=== PATIENT | male | born 1940 | race Caucasian/White ===

== ENCOUNTER → 2017-06-23 | Day surgery (SDC) | payer MEDICARE, MEDICAID ==
[~2017-06-23] MED LIST: ASPI81 PO; ATEN50TA PO; BENZ100 PO; BUPIVACAINE/EPINEPHRINE 0.25% 50 ML VIAL INFIL ONE; CALC250T PO; FENO160T PO; FISH OIL 1400 MG; ISOSULFAN BLUE 50 MG/5 ML VIAL SQ ONE; LACTATED RINGER'S 1000 ML INJ 1,000 ML ONE; LISI40TA PO; LORA1TAB12 PO; LUTE6CAP7 PO; MIDAZOLAM HCL 2 MG/2 ML VIAL ONE; MOME17I EACH NARE; NEVI200 PO; NEXI40CA PO; ONDA1TAB16; ONDANSETRON HCL 4 MG/2 ML VIAL IV PUSH ONE; PRAZ1CAP PO; PROPOFOL 200 MG/20 ML AMP IV ONE; SODIUM CHLORIDE 0.9% SOLN 100 ML (PAB) BAG IV ONE; TAB-TAB PO; VALT500T PO; VANCOMYCIN HCL 1000 MG VIAL ONE; VITA500T10 PO; [UNRECOGNIZED DRUG - CODE]; [UNRECOGNIZED DRUG - CODE]; [UNRECOGNIZED DRUG - OTHER]; [UNRECOGNIZED DRUG - SUPPLY]
--- NOTE | 2017-06-23 13:07 | TN ---
cc: MELQUIADES SEAMAN DATE OF SURGERY: 06/23/2017 PREOPERATIVE DIAGNOSIS Left mid-back melanoma. POSTOPERATIVE DIAGNOSIS Left mid-back melanoma. PROCEDURE 1. Wide excision of the left mid-back melanoma with intermediate closure of wound 3.5 cm x 8 cm. 2. [place] lymph node biopsy left axilla. ATTENDING SURGEON Mariela. CASE FOLDER Staff. ANESTHESIA General. ESTIMATED BLOOD LOSS Less than 10 cc. COMPLICATIONS None. FINDINGS One hot lymph node left axilla correlating to lymphoscintigraphy. INDICATION FOR PROCEDURE The patient is a 77-year-old male who developed a large melanoma on his left mid-back. The melanoma was biopsied partially with the majority of the melanoma intact. This returned a thin melanoma. Due to the large size of the melanoma this was likely a deeper melanoma and the patient was recommended to either undergo an excisional biopsy or to proceed with sentinel lymph node biopsy during his excision. He desired to undergo sentinel lymph node biopsy at the time of his excision. The risks, benefits and alternatives were discussed with the patient prior to the procedure. The patient agreed to undergo the procedure. DETAILS OF PROCEDURE The patient was taken to the operating room, placed in a supine position and placed under general anesthesia. The patient was transferred to the right lateral decubitus position. The back was prepped and draped in a sterile fashion. A timeout was performed. The area was marked with at least 1 cm or more 360 degrees around the patient's left mid-back melanoma. We excised this with a 15 blade scalpel in an elliptical fashion to facilitate closure. Local anesthetic was used prior to incision. We used Bovie electrocautery to dissect through the subcutaneous tissue and take the melanoma off of the deep fascia of the back. We then undermined approximately a centimeter around the wound and closed this with several deep dermal 0 Vicryl sutures. We closed the skin with 4-0 Monocryl followed by Steri-Strips. We had excellent hemostasis. We checked the wound closure with minimal tension. We placed a bandage over the patient's Steri-Strips and back wound and transferred him back to the supine position. We then turned our attention towards the axilla. We prepped and draped the left axilla where lymphoscintigraphy stated his sentinel node was located. We anesthetized a small area under the skin area of the left axilla and excised this with a 15 blade scalpel. We dissected through the subcutaneous tissue and opened the clavipectoral fascia with Bovie electrocautery. We placed a self-retractor and identified the node easily which was a normal-appearing node in level II. We excised this with Bovie electrocautery completely and passed this off as hot and nonpalpable. The background was minimum. We had excellent hemostasis. We turned our attention towards closure. We closed the clavipectoral fascia with running 3-0 Vicryl suture. We closed the skin with 4-0 Monocryl and Dermabond. The patient was discontinued from anesthesia and taken to PACU in stable condition. The patient tolerated the procedure well. No apparent complications. All counts were correct. I was present and scrubbed for the entire procedure. MD KOBE Croft/MARISOL /12:25 PM /12:45 PM
== END | disposition home or self-care (01) ==
LOC: ESDC 06:42
PROVIDERS: ATTEND Surgery
DX: C43.59 Malignant melanoma of other part of trunk (principal); E11.9 Type 2 diabetes mellitus without complications
CPT/HCPCS: 00300; 01610; 11606; 12032; 38525; 82948; 88305; 88307; 88341; 88342; J2250; J2405; J3010; J3370; J7120; Q9968

== ENCOUNTER 2018-03-18 07:39 | Day surgery (SDC) | payer MEDICARE, MEDICAID ==
[~2018-03-18 07:39] MED LIST changes: +AMLO5TAB2 PO; +BENCH; -BUPIVACAINE/EPINEPHRINE 0.25% 50 ML VIAL INFIL ONE; -ISOSULFAN BLUE 50 MG/5 ML VIAL SQ ONE; -LACTATED RINGER'S 1000 ML INJ 1,000 ML ONE; -MIDAZOLAM HCL 2 MG/2 ML VIAL ONE; -ONDA1TAB16; -ONDANSETRON HCL 4 MG/2 ML VIAL IV PUSH ONE; -PRAZ1CAP PO; -PROPOFOL 200 MG/20 ML AMP IV ONE; -SODIUM CHLORIDE 0.9% SOLN 100 ML (PAB) BAG IV ONE; -VANCOMYCIN HCL 1000 MG VIAL ONE; +ZOFR4TAB PO
[2018-03-18] MEDS ORDERED: CHLORHEXIDINE GLUCONATE 2 % 1 PACK (2 CLOTHS) TOPICAL SCH (09:00)
[2018-03-18] MEDS ORDERED: MUPIROCIN 2% OINT 1 APPLIC/GM SYR NASAL SCH (09:00)
[2018-03-18] MEDS ORDERED: POVIDONE IODINE 5% (ANTISEPSIS KIT) 4 APPLICATIONS EACH NARE SCH (09:00)
[2018-03-18] MEDS ORDERED: Hold AM Insulin & AM Hypoglycemic medications in diabetic patients PRN (09:00)
[2018-03-18] MEDS ORDERED: VANCOMYCIN 1000 MG/NS 250 ML IV SCH ×2 (09:00)
[2018-03-18] MEDS ORDERED: NS 1000 ML IV SCH (09:00)
[2018-03-18] MEDS ORDERED: NO Heparin, Lovenox, Coumadin at least 12 hours prior to procedure. PRN (09:00)
[2018-03-18] MEDS ORDERED: LYRI75CA PO (09:19)
[2018-03-18] MEDS ORDERED: LOMO2.5T PO (09:19)
[2018-03-18] MEDS ORDERED: NEXI40CA PO (09:19)
[2018-03-18] MEDS ORDERED: HUMALOG SQ (09:19)
[2018-03-18] MEDS ORDERED: RALT100C CHEW (09:19)
[2018-03-18] MEDS ORDERED: DULO1CAP2 PO (09:19)
[2018-03-18] MEDS ORDERED: CALCTAB19 PO (09:19)
[2018-03-18] MEDS ORDERED: LANTUS2P SQ (09:19)
[2018-03-18] MEDS ORDERED: METO50TA PO (09:19)
[2018-03-18] MEDS ORDERED: CYMB30CA PO (09:19)
[2018-03-18] MEDS ORDERED: OLOP.1%O EACH EYE (09:19)
[2018-03-18] MEDS ORDERED: ECASA81 PO (09:19)
[2018-03-18] MEDS ORDERED: MULTTAB67 PO (09:19)
[2018-03-18] MEDS ORDERED: NEVI200T PO (09:19)
--- NOTE | 2018-03-18 10:45 | MA ---
cc: Fredrick Hurt MD DATE: 03/18/2018 PROCEDURE: Loop recorder insertion. INDICATIONS: Atrial fibrillation detection. DESCRIPTION OF PROCEDURE: The patient was brought to the DOC Unit in the postabsorptive state. After informed consent was obtained, a [employer] LINQ loop recorder was inserted subcutaneously in the left chest. The patient tolerated the procedure well without any apparent complications. Tachybrady pause and atrial fibrillation detection was unable. The initial R-wave was 0.46 millivolts. The serial number was [id number]. Fredrick Hurt MD LAURA/AG , 10:14 AM , 10:44 AM
== END 2018-03-18 12:15 | disposition home or self-care (01) ==
LOC: HDOC 07:39 → HDIC 07:41 → HDOC 12:15
PROVIDERS: ATTEND Nuclear Medicine Nuclear Cardiology
DX: I48.91 Unspecified atrial fibrillation (principal); I10 Essential (primary) hypertension; E78.5 Hyperlipidemia, unspecified; E11.9 Type 2 diabetes mellitus without complications; Z79.4 Long term (current) use of insulin; Z79.82 Long term (current) use of aspirin
CPT/HCPCS: 33282; C1764; J3370; J7030; J7050

== ENCOUNTER 2018-09-06 10:33 | Inpatient (IN) ==
[2018-09-06] MEDS ORDERED: Sod Chloride 0.9% Inj 1,000 ML IV.CONT SCH (10:45)
--- NOTE | 2018-09-06 10:45 | ED ---
HPI General Chief Complaint: Stroke Alert Stated Complaint: medical Time Seen by Provider: 09/06/18 10:43 Source: patient and family Mode of arrival: ambulatory Limitations: no limitations History of Present Illness HPI Narrative: Patient is a 78-year-old male with history of atrial fibrillation on Eliquis, presents to the emergency room for evaluation. Patient reports that he went to bed last night and woke up this morning slurring his speech with left-sided facial droop. Patient's son called patient today and reports that he sounded not like his normal self. When son arrived to the house, he noticed that he had a left-sided facial droop as well as slurring of speech. Patient does admit that a few days ago - he fell and hit his head on the floor - he was not seen by a physician after he fell. Related Data Home Medications Medication Instructions Recorded Confirmed apixaban [Eliquis] 5 mg PO BID 09/06/18 09/06/18 diltiazem HCl 360 mg PO DAILY 09/06/18 09/06/18 duloxetine [Cymbalta] 30 mg PO BID 09/06/18 09/06/18 esomeprazole magnesium [Nexium] 40 mg PO DAILY 09/06/18 09/06/18 fenofibrate 160 mg PO DAILY 09/06/18 09/06/18 insulin glargine [Lantus U-100 35 unit SUBCUT BID 09/06/18 09/06/18 Insulin] insulin lispro [Humalog U-100 15 unit SUBCUT TIDAC 09/06/18 09/06/18 Insulin] lisinopril 5 mg PO DAILY 09/06/18 09/06/18 lorazepam [Ativan] 1 mg PO TID 09/06/18 09/06/18 metoprolol tartrate 75 mg PO BID 09/06/18 09/06/18 nevirapine 200 mg PO Q12H 09/06/18 09/06/18 ondansetron HCl [Zofran] 4 mg PO Q6-8H PRN 09/06/18 09/06/18 pregabalin [Lyrica] 75 mg PO TID 09/06/18 09/06/18 raltegravir [Isentress] 400 mg PO BID 09/06/18 09/06/18 valacyclovir 500 mg PO DAILY 09/06/18 09/06/18 Allergies Allergy/AdvReac Type Severity Reaction Status Date / Time ephedrine Allergy Mild ANXIETY Verified 11/22/17 09:13 penicillin G Allergy Mild Rash Verified 11/22/17 09:13 FLONASE AdvReac Mild REDNESS Uncoded 01/04/17 10:59 AND CONGESTION Review of Systems ROS: all other systems reviewed are negative PMFSH History History Provided By: Patient and Family Member Medical History Medical History Atrial fibrillation and flutter (Acute) Diabetes (Acute) HIV (human immunodeficiency virus infection) (Acute) Hypertension (Acute) Kidney disease (Acute) Polycythemia vera (Acute) Surgical History Surgical History History of appendectomy (Acute) Social History Social History Substance History: No History of Abuse Smoking Status: Former smoker Tobacco Type: Cigarettes How Often Do You Have a Drink Containing Alcohol: Never Recent Travel in [facility] within the Last 8 Weeks: No Recent Out of Country Travel within the Last 8 Weeks: No Exam Narrative Exam Narrative: GENERAL: moderate distress SKIN: Focused skin assessment warm/dry. HEAD: Atraumatic. Normocephalic. EYES: Pupils equal and round. No scleral icterus. No injection or drainage. ENT: No nasal bleeding or discharge. Mucous membranes pink and moist. NECK: Trachea midline. No JVD. CARDIOVASCULAR: Regular rate and rhythm. No murmur appreciated. RESPIRATORY: No accessory muscle use. Clear to auscultation. Breath sounds equal bilaterally. GASTROINTESTINAL: Abdomen soft, non-tender, nondistended. Hepatic and splenic margins not palpable. MUSCULOSKELETAL: No obvious deformities. No clubbing. No cyanosis. No edema. NEUROLOGICAL: Awake and alert. Motor grossly within normal limits. Patient with slurring of speech with left sided facial droop - NIH scale 2 PSYCHIATRIC: Appropriate mood and affect; insight and judgment normal. Course Initial Documented Vital Signs Temperature 99.5 F 09/06/18 10:35 Pulse Rate 58 L 09/06/18 10:35 Respiratory Rate 18 09/06/18 10:35 Blood Pressure 196/94 H 09/06/18 10:35 Pulse Oximetry 94 L 09/06/18 10:35 Last Documented Vital Signs Temperature 99.5 F 09/06/18 10:35 Pulse Rate 54 L 09/06/18 12:51 Respiratory Rate 18 09/06/18 12:51 Blood Pressure 174/82 H 09/06/18 12:51 Pulse Oximetry 94 L 09/06/18 12:51 Critical Care Time Critical Care Time: Yes Total Critical Care Time: 30 Attestation: Aggregate critical care time was 30 minutes. Time to perform other separately billable procedures was not included in the critical care time. My time did not include minutes spent treating any other patients simultaneously or on activities that did not directly contribute to the patient's treatment. The services I provided to this patient were to treat and/or prevent clinically significant deterioration that could result in: , decompensation, deterioration I provided critical care services requiring my management, as noted below: Chart data review, documentation time, medication orders and management, vital sign assessments/reviewing monitor data, ordering and reviewing lab tests, ordering and interpreting/reviewing x-rays and diagnostic studies, care of the patient and discussion of the patient with the admitting physicians. NIH Stroke Scale NIHSS Time Completed NIHSS Time Completed: 10:50 NIH Stroke Scale Level of Consciousness: 0-Alert Orientation Questions: 0-Answers both correct Responds to Commands: 0-Both tasks correct Gaze Eye Movement: 0-Horizontal movement WNL Visual Fernandez: 0-No visual field defect Facial Movement: 1-Minor facial palsy Motor Functions Arm LEFT: 0-No drift Motor Functions Arm RIGHT: 0-No drift Motor Functions Leg LEFT: 0-No drift Motor Functions Leg RIGHT: 0-No drift Limb Ataxia: 0-No ataxia Sensory Loss: 0-No sensory loss Best Language: 1-Mild aphasia Articulation: 0-Normal Extinction or Inattention Sensory: 0-Absent Total: 2 Medical Decision Making MDM Narrative Medical decision making narrative: During the course of the patients emergency department visit, the patients history, examination, and differential diagnosis were reviewed with the patient. The patient was placed on a site leasing agent with oximetry and frequent blood pressure monitoring. The patient had an IV access obtained and blood work sent for analysis. Patient with a wake up stroke with NIH scale of 2 - case reviewed with Dr. Whitehead - CTA and perfusion studies ordered The patient was initially provided The patients laboratory studies were reviewed Patient with no acute intracerebral hemorrhage. Patient is currently on Eliquis , he is not a candidate for TPA. There are no obvious clots on CTA patient will be admitted to the hospital for CVA workup case reviewed with Dr. Schulte who accepts pt to service for admission Medical Screen Exam Complete: Yes Emergency Medical Condition: Yes Differential Diagnosis Differential Diagnosis: cva, tia, ich Medical Records Medical records reviewed: Yes I reviewed the patient's medical records. Lab Data Lab results reviewed: Yes I reviewed the patient's lab results. Result diagrams: 09/06/18 10:40 09/06/18 10:40 Lab Results 09/06/18 09/06/18 09/06/18 Range/Units 10:40 10:40 10:40 WBC 6.9 (4.0-11.0) th/mm3 RBC 4.78 (4.50-5.90) mil/mm3 Hgb 16.6 (13.0-17.0) gm/dL POC Hgb (Calc) 16.7 (13.0-17.0) g/dL Hct 47.9 (39.0-51.0) % POC Hct 49.0 (39-51.0) % MCV 100.1 H (80.0-100.0) fL MCH 34.7 H (27.0-34.0) pg MCHC 34.7 (32.0-36.0) % RDW 13.8 (11.6-17.2) % Plt Count 273 (150-450) th/mm3 MPV 7.4 (7.0-11.0) fL Neut % (Auto) 51.4 (16.0-70.0) % Lymph % (Auto) 34.9 (9.0-44.0) % [place] % (Auto) 10.8 H (0.0-8.0) % Eos % (Auto) 2.2 (0.0-4.0) % Baso % (Auto) 0.7 (0.0-2.0) % Neut # (Auto) 3.5 (1.8-7.7) th/mm3 Lymph # (Auto) 2.4 (1.0-4.8) th/mm3 [place] # (Auto) 0.7 (0.0-0.9) th/mm3 Eos # (Auto) 0.2 (0.0-0.4) th/mm3 Baso # (Auto) 0.0 (0.0-0.2) th/mm3 WBC Differential . Differential Comment Auto diff final PT (9.8-11.6) sec INR Ratio APTT (23.4-31.7) sec Fibrinogen (227-377) mg/dL POC Sodium 143 (137-144) mmol/L Sodium 142 (136-145) meq/L POC Potassium 3.4 L (3.6-5.0) mmol/L Potassium 3.5 (3.5-5.1) meq/L POC Chloride 103 (102-111) mmol/L Chloride 106 (98-107) meq/L Carbon Dioxide 25.9 (21.0-32.0) meq/L Anion Gap 10 (5-15) meq/L POC BUN 14 (5-21) mg/dL BUN 14 (7-18) mg/dL Creatinine 1.41 H (0.60-1.30) mg/dL POC Creatinine 1.2 (0.6-1.3) mg/dL Estimated GFR 49 L (>89) mL/min POC Glucose 120 H (68-110) mg/dL Random Glucose 118 H (74-106) mg/dL Calcium 8.7 (8.5-10.1) mg/dL Total Bilirubin 0.5 (0.2-1.0) mg/dL AST 39 H (15-37) U/L ALT 49 (12-78) U/L Alkaline Phosphatase 44 L (45-117) U/L Total Creatine Kinase (39-308) U/L CK-MB (CK-2) (0.5-3.6) ng/mL CK-MB (CK-2) % (0.0-4.0) % Troponin I (0.02-0.05) ng/mL Total Protein 7.5 (6.4-8.2) g/dL Albumin 4.2 (3.4-5.0) g/dL Urine Color (Yellw/Straw) Urine Clarity (Clear) Urine pH (5.0-8.5) Ur Specific [place] (1.002-1.035) Urine Protein (Neg-Trace) mg/dL Urine Glucose (UA) (Negative) mg/dL Urine Ketones (Negative) mg/dL Urine Occult Blood (Negative) Urine Nitrate (Negative) Urine Bilirubin (Negative) Urine Urobilinogen (Less than 2) mg/dL Ur Leukocyte Esterase (Negative) Urine RBC (0-3) /hpf Urine WBC (0-5) /hpf Ur Squamous Epith Cells (0-5) /hpf Urine Mucus (Occasional) /lpf Micro UA Comment Ur Microscopic Review Urine Culture Comments Urine Opiates Screen (Neg) Ur Barbiturates Screen (Neg) Ur Amphetamines Screen (Neg) U Benzodiazepines Scrn (Neg) Urine Cocaine Screen (Neg) U Cannabinoids Screen (Neg) Blood Type O Positive Blood Type Recheck Required Antibody Screen Negative 09/06/18 09/06/18 09/06/18 Range/Units 10:40 10:40 11:40 WBC (4.0-11.0) th/mm3 RBC (4.50-5.90) mil/mm3 Hgb (13.0-17.0) gm/dL POC Hgb (Calc) (13.0-17.0) g/dL Hct (39.0-51.0) % POC Hct (39-51.0) % MCV (80.0-100.0) fL MCH (27.0-34.0) pg MCHC (32.0-36.0) % RDW (11.6-17.2) % Plt Count (150-450) th/mm3 MPV (7.0-11.0) fL Neut % (Auto) (16.0-70.0) % Lymph % (Auto) (9.0-44.0) % [place] % (Auto) (0.0-8.0) % Eos % (Auto) (0.0-4.0) % Baso % (Auto) (0.0-2.0) % Neut # (Auto) (1.8-7.7) th/mm3 Lymph # (Auto) (1.0-4.8) th/mm3 [place] # (Auto) (0.0-0.9) th/mm3 Eos # (Auto) (0.0-0.4) th/mm3 Baso # (Auto) (0.0-0.2) th/mm3 WBC Differential Differential Comment PT 12.5 H (9.8-11.6) sec INR 1.2 Ratio APTT 30.5 (23.4-31.7) sec Fibrinogen 229 (227-377) mg/dL POC Sodium (137-144) mmol/L Sodium (136-145) meq/L POC Potassium (3.6-5.0) mmol/L Potassium (3.5-5.1) meq/L POC Chloride (102-111) mmol/L Chloride (98-107) meq/L Carbon Dioxide (21.0-32.0) meq/L Anion Gap (5-15) meq/L POC BUN (5-21) mg/dL BUN (7-18) mg/dL Creatinine (0.60-1.30) mg/dL POC Creatinine (0.6-1.3) mg/dL Estimated GFR (>89) mL/min POC Glucose (68-110) mg/dL Random Glucose (74-106) mg/dL Calcium (8.5-10.1) mg/dL Total Bilirubin (0.2-1.0) mg/dL AST (15-37) U/L ALT (12-78) U/L Alkaline Phosphatase (45-117) U/L Total Creatine Kinase 573 H (39-308) U/L CK-MB (CK-2) 8.3 H (0.5-3.6) ng/mL CK-MB (CK-2) % 1.4 (0.0-4.0) % Troponin I 0.03 (0.02-0.05) ng/mL Total Protein (6.4-8.2) g/dL Albumin (3.4-5.0) g/dL Urine Color (Yellw/Straw) Urine Clarity (Clear) Urine pH (5.0-8.5) Ur Specific [place] (1.002-1.035) Urine Protein (Neg-Trace) mg/dL Urine Glucose (UA) (Negative) mg/dL Urine Ketones (Negative) mg/dL Urine Occult Blood (Negative) Urine Nitrate (Negative) Urine Bilirubin (Negative) Urine Urobilinogen (Less than 2) mg/dL Ur Leukocyte Esterase (Negative) Urine RBC (0-3) /hpf Urine WBC (0-5) /hpf Ur Squamous Epith Cells (0-5) /hpf Urine Mucus (Occasional) /lpf Micro UA Comment Ur Microscopic Review Urine Culture Comments Urine Opiates Screen Neg (Neg) Ur Barbiturates Screen Neg (Neg) Ur Amphetamines Screen Neg (Neg) U Benzodiazepines Scrn Neg (Neg) Urine Cocaine Screen Neg (Neg) U Cannabinoids Screen Neg (Neg) Blood Type Blood Type Recheck Antibody Screen 09/06/18 09/06/18 Range/Units 11:40 12:02 WBC (4.0-11.0) th/mm3 RBC (4.50-5.90) mil/mm3 Hgb (13.0-17.0) gm/dL POC Hgb (Calc) (13.0-17.0) g/dL Hct (39.0-51.0) % POC Hct (39-51.0) % MCV (80.0-100.0) fL MCH (27.0-34.0) pg MCHC (32.0-36.0) % RDW (11.6-17.2) % Plt Count (150-450) th/mm3 MPV (7.0-11.0) fL Neut % (Auto) (16.0-70.0) % Lymph % (Auto) (9.0-44.0) % [place] % (Auto) (0.0-8.0) % Eos % (Auto) (0.0-4.0) % Baso % (Auto) (0.0-2.0) % Neut # (Auto) (1.8-7.7) th/mm3 Lymph # (Auto) (1.0-4.8) th/mm3 [place] # (Auto) (0.0-0.9) th/mm3 Eos # (Auto) (0.0-0.4) th/mm3 Baso # (Auto) (0.0-0.2) th/mm3 WBC Differential Differential Comment PT (9.8-11.6) sec INR Ratio APTT (23.4-31.7) sec Fibrinogen (227-377) mg/dL POC Sodium (137-144) mmol/L Sodium (136-145) meq/L POC Potassium (3.6-5.0) mmol/L Potassium (3.5-5.1) meq/L POC Chloride (102-111) mmol/L Chloride (98-107) meq/L Carbon Dioxide (21.0-32.0) meq/L Anion Gap (5-15) meq/L POC BUN (5-21) mg/dL BUN (7-18) mg/dL Creatinine (0.60-1.30) mg/dL POC Creatinine (0.6-1.3) mg/dL Estimated GFR (>89) mL/min POC Glucose 125 H (68-110) mg/dL Random Glucose (74-106) mg/dL Calcium (8.5-10.1) mg/dL Total Bilirubin (0.2-1.0) mg/dL AST (15-37) U/L ALT (12-78) U/L Alkaline Phosphatase (45-117) U/L Total Creatine Kinase (39-308) U/L CK-MB (CK-2) (0.5-3.6) ng/mL CK-MB (CK-2) % (0.0-4.0) % Troponin I (0.02-0.05) ng/mL Total Protein (6.4-8.2) g/dL Albumin (3.4-5.0) g/dL Urine Color Yellow (Yellw/Straw) Urine Clarity Clear (Clear) Urine pH 7.0 (5.0-8.5) Ur Specific [place] 1.020 (1.002-1.035) Urine Protein Negative (Neg-Trace) mg/dL Urine Glucose (UA) 50 (Negative) mg/dL Urine Ketones Negative (Negative) mg/dL Urine Occult Blood Negative (Negative) Urine Nitrate Negative (Negative) Urine Bilirubin Negative (Negative) Urine Urobilinogen Less than 2 (Less than 2) mg/dL Ur Leukocyte Esterase Negative (Negative) Urine RBC 1 (0-3) /hpf Urine WBC Less than 1 (0-5) /hpf Ur Squamous Epith Cells <1 (0-5) /hpf Urine Mucus Few H (Occasional) /lpf Micro UA Comment Culture not ind Ur Microscopic Review Not Reportable Urine Culture Comments Culture not ind Urine Opiates Screen (Neg) Ur Barbiturates Screen (Neg) Ur Amphetamines Screen (Neg) U Benzodiazepines Scrn (Neg) Urine Cocaine Screen (Neg) U Cannabinoids Screen (Neg) Blood Type Blood Type Recheck Antibody Screen Imaging Data Attestation: I personally reviewed and interpreted this imaging study as follows : Radiologist's impression: Chest X-Ray 09/06/18 10:38 CONCLUSION: Limited mid inspiratory study with no definite acute cardiopulmonary disease. Head CT 09/06/18 10:38 CONCLUSION: 1. No acute hemorrhage, mass or evidence of acute infarction. 2. Atrophy and chronic small vessel ischemic change. Report was called by [your Schiering to Dr. Ghotra in the emergency room at 1054 hours. ] Head CTA 09/06/18 10:38 CONCLUSION: 1. Unremarkable head CTA. No evidence for large vessel occlusion. Report was called by Dr. Neely to Dr. Whitehead at 11:22 am.] Neck CTA 09/06/18 10:38 CONCLUSION: 1. Essentially unremarkable study except for minimal atherosclerotic plaquing at the origin of both internal carotid arteries. CT CAD 09/06/18 10:39 CONCLUSION: Physiological brain perfusion parameters with RAPID analysis as above. The decision for consideration of therapy is multi factorial and multi disciplinary relying on subjective and objective clinical data. This data is not construed or intended to be the sole determinant of treatment eligibility. ECG Data EKG Prior to Arrival: No Attestation: I personally reviewed and interpreted this ECG as follows: Interpretation: EKG at 1115: Sinus reilly at 55bpm, qt/qtc: 449/438, st seg depression lateral leads with t wave inversion Discharge Plan Discharge Disposition Patient Disposition: 30 Still Patient Discharge Condition Condition: Serious Discharge Details Diagnosis: CVA (cerebral vascular accident) Physicians Team ED Provider: Katalina Ghotra Primary Care Provider: UNKNOWN, Attending Provider: Prince Schulte Other Providers: Tylor Whitehead Status ED Status: Admitted Patient
--- NOTE | 2018-09-06 10:57 | CT ---
EXAM DATE: 09/06/2018 10:52 AM EST AGE/SEX: 78 years / Male INDICATIONS: Slurred speech and left side droop. CLINICAL DATA: This is the patient's initial encounter. Patient reports that signs and symptoms have been present for 1 day and indicates a pain score of Nonresponsive. MEDICAL/SURGICAL HISTORY: Non-responsive. Non-responsive. RADIATION DOSE: 62.19 CTDI (mGy) COMPARISON: None.. TECHNIQUE: CT of the head without contrast. Using automated exposure control and adjustment of the mA and/or kV according to patient size, radiation dose was kept as low as reasonably achievable to ob tain optimal diagnostic quality images. DICOM format image data is available electronically for revi ew and comparison. FINDINGS: Cerebrum: The ventricles are normal for age with atrophy and chronic small vessel ischemic change. N o evidence of midline shift, mass lesion, hemorrhage or acute infarction. No extraaxial fluid collec tions are seen. Posterior Fossa: The cerebellum and brainstem are intact. The 4th ventricle is midline. The cerebe llopontine angle is unremarkable. Extracranial: The visualized portion of the orbits is intact. Skull: The calvaria is intact. No evidence of skull fracture. CONCLUSION: 1. No acute hemorrhage, mass or evidence of acute infarction. 2. Atrophy and chronic small vessel ischemic change. Report was called by [cecy Bradshaw to Dr. Ghotra in the emergency room at 1054 hours. ] Electronically signed by: Patrick Bradshaw MD 09/06/2018 10:56 AM EST
--- NOTE | 2018-09-06 11:23 | CT ---
EXAM DATE: 09/06/2018 11:11 AM EST AGE/SEX: 78 years / Male INDICATIONS: Slurred speech, left sided droop. CLINICAL DATA: This is the patient's initial encounter. Patient reports that signs and symptoms have been present for 1 day and indicates a pain score of Nonresponsive. MEDICAL/SURGICAL HISTORY: Non-responsive. Non-responsive. RADIATION DOSE: 217.99 CTDI (mGy) COMPARISON: [facility] [place], CT HEAD W/O CONTRAST, 09/06/2018. . TECHNIQUE: CT of the head after intravenous administration of 40 ml Visipaque 320 (iodixanol) nonio kristin water-soluble contrast as a single exam dose. Using automated exposure control and adjustment of the mA and/or kV according to patient size, radiation dose was kept as low as reasonably achievable to obtain optimal diagnostic quality images. DICOM format image data is available electronically for review and comparison. FINDINGS: 1. CBF (<30%) Volume (ml): 0 2. Perfusion (Tmax>6.0s) Volume (ml): 0 3. Mismatch Volume (ml) (Tmax>6.0 - CBF): 0 CONCLUSION: Physiological brain perfusion parameters with RAPID analysis as above. The decision for consideration of therapy is multi factorial and multi disciplinary relying on subjec tive and objective clinical data. This data is not construed or intended to be the sole determinant of treatment eligibility. Electronically signed by: Cecilio Avalos MD 09/06/2018 11:22 AM EST
--- NOTE | 2018-09-06 11:29 | CT ---
EXAM DATE: 09/06/2018 11:12 AM EST AGE/SEX: 78 years / Male INDICATIONS: Slurred speech, left side droop. CLINICAL DATA: This is the patient's initial encounter. Patient reports that signs and symptoms have been present for 1 day and indicates a pain score of Nonresponsive. MEDICAL/SURGICAL HISTORY: Non-responsive. Non-responsive. RADIATION DOSE: 10.37 CTDI (mGy) Combined studies COMPARISON: [facility] [place] CEREBRAL PERF W CONTRAST W 3D, 09/06/2018. . TECHNIQUE: Volumetric scanning was performed using a multi-row detector CT scanner during bolus infu maryam of 55 ml Visipaque 320 (iodixanol) nonionic water-soluble contrast as a cumulative dose for mul tiple exams. The data was post processed with a variety of visualization algorithms including full volume maximum intensity projection, multi-planar sliding thin slab reformation, curved planar reform ation, and surface rendering techniques. Using automated exposure control and adjustment of the mA a nd/or kV according to patient size, radiation dose was kept as low as reasonably achievable to obtain optimal diagnostic quality images. DICOM format image data is available electronically for review a nd comparison. FINDINGS: Anterior Circulation: Intracranial Carotid Arteries: Patent. JURGEN: There is no evidence for aneurysm, vessel truncation, and no evidence for vascular malformation. MCA: There is no evidence for aneurysm, vessel truncation, and no evidence for vascular malformation. Posterior Circulation: Distal Vertebral Arteries: Distal Vertebral arteries are symetrical and patent. Basilar Artery: There is no evidence for aneurysm, vessel truncation, and no evidence for vascular ma lformation. M48 M60 ARMOR CREWMAN and Cerebellar Branches: There is no evidence for aneurysm, vessel truncation and no evidence for vascular malformation. CONCLUSION: 1. Unremarkable head CTA. No evidence for large vessel occlusion. Report was called by Dr. Neely to Dr. Whitehead at 11:22 am.] Electronically signed by: He Veronica MD 09/06/2018 11:28 AM EST
[2018-09-06] MEDS ORDERED: Dextrose 50% in Water 50 ML Vial IV.PUSH PRN ×2 (11:40→11:42)
--- NOTE | 2018-09-06 11:41 | XR ---
EXAM DATE: 09/06/2018 11:36 AM EST AGE/SEX: 78 years / Male INDICATIONS: Stroke alert. Shortness of breath. CLINICAL DATA: This is the patient's initial encounter. Patient reports that signs and symptoms have been present for 1 day and indicates a pain score of 0/10. MEDICAL/SURGICAL HISTORY: Chronic obstructive pulmonary disease. Hypertension. Diabetes melli tus type II. AFIB. . Loop recorder. COMPARISON: No prior exams available for comparison. FINDINGS: A single AP portable is view of the chest was obtained. The study is limited inspiratory a crowding o f vasculature. There is no definite consolidation or effusion. The heart size is at the upper limits of normal. Soft tissues and bony thorax appear unremarkable with overlying electrocardiogram leads. CONCLUSION: Limited mid inspiratory study with no definite acute cardiopulmonary disease. Electronically signed by: Patrick Bradshaw MD 09/06/2018 11:40 AM EST
[2018-09-06] MEDS ORDERED: Bisacodyl 10 MG Supp RECTAL PRN (11:42)
--- NOTE | 2018-09-06 11:42 | CT ---
EXAM DATE: 09/06/2018 11:17 AM EST AGE/SEX: 78 years / Male INDICATIONS: Slurred speech, left sided droop. CLINICAL DATA: This is the patient's initial encounter. Patient reports that signs and symptoms have been present for 1 day and indicates a pain score of Nonresponsive. MEDICAL/SURGICAL HISTORY: Non-responsive. Non-responsive. RADIATION DOSE: 10.37 CTDI (mGy) ; Combined studies [place] [facility] [place]. . TECHNIQUE: Volumetric scanning was performed using a multirow detector CT scanner during bolus infus ion of 55 ml Visipaque 320 (iodixanol) nonionic water-soluble contrast as a cumulative dose for mult iple exams. The data was postprocessed with a variety of visualization algorithms including full-vo lume maximum intensity projection, multiplanar sliding thin-slab reformation, curved-planar reformati on, and surface-rendering techniques. Using automated exposure control and adjustment of the mA and/ or kV according to patient size, radiation dose was kept as low as reasonably achievable to obtain op timal diagnostic quality images. DICOM format image data is available electronically for review and comparison. Percent stenosis is calculated using the diameter of the stenotic region over the diameter of the nor mal distal internal carotid artery. FINDINGS: The takeoff of the major vessels are intact. The vertebral arteries appear intact bilaterally. The in ternal carotid arteries takeoff bilaterally appear intact without any significant stenosis. There is minimal atherosclerotic plaquing at the origin of both internal carotid arteries. CONCLUSION: 1. Essentially unremarkable study except for minimal atherosclerotic plaquing at the origin of both internal carotid arteries. Electronically signed by: Cecliio Avalos MD 09/06/2018 11:41 AM EST
[2018-09-06] MEDS ORDERED: Aspirin 325 MG Tablet PO ONE (11:46)
[2018-09-06 11:55] LABS: Baso % (Auto) 0.7 % (0.0-2.0); Eos # (Auto) 0.2 th/mm3 (0.0-0.4); Eos % (Auto) 2.2 % (0.0-4.0); Hematocrit 47.9 % (39.0-51.0); Hemoglobin 16.6 gm/dL (13.0-17.0); Lymph # (Auto) 2.4 th/mm3 (1.0-4.8); Lymph % (Auto) 34.9 % (9.0-44.0); Mean Corpuscular HGB Conc 34.7 % (32.0-36.0); Mean Corpuscular Hemoglobin 34.7 pg (27.0-34.0); Mean Corpuscular Volume 100.1 fL (80.0-100.0); Mean Platelet Volume 7.4 fL (7.0-11.0); Mono # (Auto) 0.7 th/mm3 (0.0-0.9); Mono % (Auto) 10.8 % (0.0-8.0); Neut # (Auto) 3.5 th/mm3 (1.8-7.7); Neut % (Auto) 51.4 % (16.0-70.0); Platelet Count 273 th/mm3 (150-450); Red Blood Count 4.78 mil/mm3 (4.50-5.90); Red Cell Distribution Width 13.8 % (11.6-17.2); White Blood Count 6.9 th/mm3 (4.0-11.0)
[2018-09-06] MEDS: Insulin NovoLOG Aspart Correctional Sugar Inj SQ SCH ×3 (12:06→22:41)
[2018-09-06 12:07] LABS: Bilirubin,Urine Negative (Negative); Clarity,Urine Clear (Clear); Color,Urine Yellow (Yellw/Straw); Glucose,Urine (UA) 50 mg/dL (Negative); Leukocyte Esterase,Urine Negative (Negative); Mucus,Urine Few /lpf (Occasional); Nitrite,Urine Negative (Negative); Squamous Epithelial Cell,Urine <1 /hpf (0-5)
[2018-09-06] MEDS: Sod Chloride 0.9% Inj 1,000 ML IV.CONT SCH ×2 (12:07→23:06)
[2018-09-06 12:09] LABS: Activated Partial Thrombo Time 30.5 sec (23.4-31.7); INR 1.2 Ratio; Prothrombin Time 12.5 sec (9.8-11.6)
[2018-09-06 12:11] LABS: Amphetamine Screen,Urine Neg (Neg); Barbiturate Screen,Urine Neg (Neg); Cannabinoid Screen,Urine Neg (Neg); Cocaine Screen,Urine Neg (Neg)
[2018-09-06 12:26] LABS: Opiate Screen,Urine Neg (Neg)
[2018-09-06 12:27] LABS: Alanine Aminotransferase 49 U/L (12-78); Albumin 4.2 g/dL (3.4-5.0); Anion Gap 10 meq/L (5-15); Aspartate Aminotransferase 39 U/L (15-37); Calcium 8.7 mg/dL (8.5-10.1); Carbon Dioxide 25.9 meq/L (21.0-32.0); Chloride 106 meq/L (98-107); Glomerular Filtration Rate 49 mL/min (>89); Glucose,Random 118 mg/dL (74-106); Potassium 3.5 meq/L (3.5-5.1); Sodium 142 meq/L (136-145)
[2018-09-06 12:31] LABS: Troponin I 0.03 ng/mL (0.02-0.05)
[2018-09-06 12:36] LABS: Alkaline Phosphatase 44 U/L (45-117); Blood Urea Nitrogen 14 mg/dL (7-18); Total Protein 7.5 g/dL (6.4-8.2)
[2018-09-06 12:43] LABS: CKMB Percent 1.4 % (0.0-4.0); Creatine Kinase MB 8.3 ng/mL (0.5-3.6)
--- NOTE | 2018-09-06 14:33 | P.HPIM ---
History of Present Illness Primary Care Physician: UNKNOWN History of Present Illness: Mr. Rodriguez is a 78 year old male. He has no prior history of CVA but reports that this morning he had a left facial droop and slurred speech. When I am seeing him in the ER, he reports that he is back to baseline and his symptoms are resolved. He uses a walker at baseline and reports a fall with head strike earlier in the week. Imaging with CT in the ER shows no acute bleeds or masses. No evidence of ischemia on CT. No other complaints at time of interview. Inpatient Certification: I certify that the inpatient services were ordered in accordance with Medicare regulations governing the order. This includes certification that hospital inpatient services are reasonable and necessary and in the case of services not specified as inpatient-only under 42 CFR 419.22(n), that they are appropriately provided as inpatient services in accordance to with the 2-midnight benchmark under 43 CFR 412.3(e) Estimated Total Length of Stay (Days): 3 Plans for Post Hospital Care: Home Review of Systems Constitutional: No fevers, no chills no night sweats, no fatigue, no weakness Eyes: No eye pain, no blurry vision, no loss of vision ENT: No sore throat, no ear pain, no rhinorrhea Cardiovascular: No chest pain, no tachycardia, no palpitations, no shortness of breath, no syncope Respiratory: No wheezing, no cough, no shortness of breath Gastrointestinal: No abdominal pain, no black tarry stools, no bright red blood per rectum, no vomiting, no diarrhea Musculoskeletal: No joint pain, no muscle cramps, no stiffness Integumentary: No rash, no ulcers, no drainage Neurologic: No sensory loss, slurred speech, left facial droop, no dizziness Psychiatric: No behavioral changes, no hallucinations, no suicidal ideations [facility] - History History Provided By: Patient, Family Member - Medical History Medical History: Medical History (Last Updated 09/06/18 @ 11:36 by Lupe Gilbert RN) Atrial fibrillation and flutter Diabetes HIV (human immunodeficiency virus infection) Hypertension Kidney disease Polycythemia vera - Surgical History Surgical History: Surgical History (Last Updated 09/06/18 @ 11:36 by Lupe Gilbert RN) History of appendectomy - Family History Family History: Family History (Last Updated 09/06/18 @ 14:25 by Prince Schulte MD) Other Osteoarthritis - Tobacco History Smoking Status: Former smoker Tobacco Type: Cigarettes - Alcohol History How Often Do You Have a Drink Containing Alcohol: Never - Substance Use History Substance History: No History of Abuse - Travel History Recent Travel in the [place] Within the Last 8 Weeks: No Recent Travel Out of the Country Within the Last 8 Weeks: No - Immunization History Tetanus Immunization: >5 Years Medications and Allergies Active Medications: Active Medications Al Hydroxide/Mg Hydroxide (Milk Of Magnesia Liq) 30 ml PO Q12H PRN PRN Reason: Mild Constipation Al Hydroxide/Mg Hydroxide (Milk Of Magnesia Liq) 30 ml PO Q12H PRN PRN Reason: Mild Constipation Bisacodyl (Dulcolax Supp) 10 mg RECTAL DAILY PRN PRN Reason: SEVERE CONSITIPATION Dextrose (D50w Vial) 50 ml IV.PUSH UNSCH PRN PRN Reason: PER HYPOGLYCEMIA PROTOCOL Glucagon (Glucagon Inj) 1 mg OTHER PRN PRN PRN Reason: for Hypoglycemia Protocol Sodium Chloride (Ns Inj) 1,000 mls @ 100 mls/hr IV.CONT .Q10H [facility] Last Infusion: 09/06/18 12:40 Dose: 100 mls/hr Insulin Aspart (Novolog Insulin Correctional Sugar Inj) 0 unit SQ ACHS JAMAL; Protocol Last Admin: 09/06/18 12:06 Dose: Not Given Lactulose (Lactulose Liq) 30 ml PO DAILY PRN PRN Reason: SEVERE CONSITIPATION Ondansetron HCl (Zofran Inj) 4 mg IV.PUSH Q6H PRN PRN Reason: NAUSEA OR VOMITING Senna/Docusate Sodium (Gia-Colace) 1 tab PO BID JAMAL Sennosides (Senokot) 17.2 mg PO Q12H PRN PRN Reason: Moderate Constipation Allergies Allergy/AdvReac Type Severity Reaction Status Date / Time ephedrine Allergy Mild ANXIETY Verified 11/22/17 09:13 penicillin G Allergy Mild Rash Verified 11/22/17 09:13 FLONASE AdvReac Mild REDNESS Uncoded 01/04/17 10:59 AND CONGESTION Home Medications Medication Instructions Recorded Confirmed Type apixaban [Eliquis] 5 mg PO BID 09/06/18 09/06/18 History diltiazem HCl 360 mg PO DAILY 09/06/18 09/06/18 History duloxetine [Cymbalta] 30 mg PO BID 09/06/18 09/06/18 History esomeprazole magnesium [Nexium] 40 mg PO DAILY 09/06/18 09/06/18 History fenofibrate 160 mg PO DAILY 09/06/18 09/06/18 History insulin glargine [Lantus U-100 35 unit SUBCUT BID 09/06/18 09/06/18 History Insulin] insulin lispro [Humalog U-100 15 unit SUBCUT TIDAC 09/06/18 09/06/18 History Insulin] lisinopril 5 mg PO DAILY 09/06/18 09/06/18 History lorazepam [Ativan] 1 mg PO TID 09/06/18 09/06/18 History metoprolol tartrate 75 mg PO BID 09/06/18 09/06/18 History nevirapine 200 mg PO Q12H 09/06/18 09/06/18 History ondansetron HCl [Zofran] 4 mg PO Q6-8H PRN 09/06/18 09/06/18 History pregabalin [Lyrica] 75 mg PO TID 09/06/18 09/06/18 History raltegravir [Isentress] 400 mg PO BID 09/06/18 09/06/18 History valacyclovir 500 mg PO DAILY 09/06/18 09/06/18 History Exam Vital signs: Vital Signs 09/06/18 10:35 09/06/18 10:38 09/06/18 11:05 Temperature 99.5 F Pulse Rate 58 L 58 L Respiratory Rate 18 18 Blood Pressure 196/94 H 161/77 H Pulse Oximetry 94 L 96 95 09/06/18 12:51 Temperature Pulse Rate 54 L Respiratory Rate 18 Blood Pressure 174/82 H Pulse Oximetry 94 L Intake & Output 09/05/18 09/06/18 09/06/18 18:59 06:59 18:59 Weight 83.915 kg Narrative: GENERAL: NAD, A&Ox3 HEAD: Normocephalic. NECK: Supple, trachea midline. No lymphadenopathy. EYES: No scleral icterus. No injection or drainage. CARDIOVASCULAR: Regular rate and rhythm without murmurs, gallops, or rubs. RESPIRATORY: Breath sounds equal bilaterally. No accessory muscle use. GASTROINTESTINAL: Abdomen soft, non-tender, nondistended. MUSCULOSKELETAL: No cyanosis, or edema. SKIN: Warm and dry. healing linear scab at left posterior scalp. NEURO: No focal neurological deficits. Results - Labs CBC & Chem 7: 09/06/18 10:40 09/06/18 10:40 Labs: Short CBC 09/06/18 Range/Units 10:40 WBC 6.9 (4.0-11.0) th/mm3 Hgb 16.6 (13.0-17.0) gm/dL Hct 47.9 (39.0-51.0) % Plt Count 273 (150-450) th/mm3 BMP 09/06/18 10:40 Sodium 142 Potassium 3.5 Chloride 106 Carbon Dioxide 25.9 BUN 14 Creatinine 1.41 H Calcium 8.7 Cardiac Enzymes 09/06/18 Range/Units 10:40 Total Creatine Kinase 573 H (39-308) U/L CK-MB (CK-2) 8.3 H (0.5-3.6) ng/mL Troponin I 0.03 (0.02-0.05) ng/mL Liver Function 09/06/18 Range/Units 10:40 Total Bilirubin 0.5 (0.2-1.0) mg/dL AST 39 H (15-37) U/L ALT 49 (12-78) U/L Alkaline Phosphatase 44 L (45-117) U/L Albumin 4.2 (3.4-5.0) g/dL Urine 09/06/18 Range/Units 11:40 Urine Color Yellow (Yellw/Straw) Urine Clarity Clear (Clear) Urine pH 7.0 (5.0-8.5) Ur Specific [place] 1.020 (1.002-1.035) Urine Protein Negative (Neg-Trace) mg/dL Urine Glucose (UA) 50 (Negative) mg/dL - Imaging Impressions Chest X-Ray 09/06/18 10:38 CONCLUSION: Limited mid inspiratory study with no definite acute cardiopulmonary disease. Head CT 09/06/18 10:38 CONCLUSION: 1. No acute hemorrhage, mass or evidence of acute infarction. 2. Atrophy and chronic small vessel ischemic change. Report was called by [your Quyening to Dr. Ghotra in the emergency room at 1054 hours. ] Head CTA 09/06/18 10:38 CONCLUSION: 1. Unremarkable head CTA. No evidence for large vessel occlusion. Report was called by Dr. Neely to Dr. Whitehead at 11:22 am.] Neck CTA 09/06/18 10:38 CONCLUSION: 1. Essentially unremarkable study except for minimal atherosclerotic plaquing at the origin of both internal carotid arteries. CT CAD 09/06/18 10:39 CONCLUSION: Physiological brain perfusion parameters with RAPID analysis as above. The decision for consideration of therapy is multi factorial and multi disciplinary relying on subjective and objective clinical data. This data is not construed or intended to be the sole determinant of treatment eligibility. Caprini VTE Risk Assessment Caprini VTE Risk Assessment: No/Low Risk (score <= 1) Caprini Risk Assessment Model: Point Value = 1 Point Value = 2 Point Value = 3 Point Value = 5 Age 41-60 Minor surgery BMI > 25 kg/m2 Swollen legs Varicose veins or History of unexplained or recurrent spontaneous Oral contraceptives or hormone replacement Sepsis (< 1 month) Serious lung disease, including pneumonia (< 1 month) Abnormal pulmonary function Acute myocardial infarction Congestive heart failure (< 1 month) History of inflammatory bowel disease Medical patient at bed rest Age 61-74 Arthroscopic surgery Major open surgery (> 45 min) Laparoscopic surgery (> 45 min) Malignancy Confined to bed (> 72 hours) Immobilizing plaster cast Central venous access Age >= 75 History of VTE Family history of VTE Factor V Leiden Prothrombin [id number] Lupus anticoagulant Anticardiolipin antibodies Elevated serum homocysteine Heparin-induced thrombocytopenia Other congenital or acquired thrombophilia Stroke (< 1 month) Elective arthroplasty Hip, pelvis, or leg fracture Acute spinal cord injury (< 1 month) Prophylaxis Regimen: Total Risk Factor Score Risk Level Prophylaxis Regimen 0-1 Low Early ambulation 2 Moderate Order ONE of the following: *Sequential Compression Device (SCD) *Heparin 5000 units SQ BID 3-4 Higher Order ONE of the following medications: *Heparin 5000 units SQ TID *Enoxaparin/Lovenox 40 mg SQ daily (WT < 150 kg, CrCl > 30 mL/min) *Enoxaparin/Lovenox 30 mg SQ daily (WT < 150 kg, CrCl > 10-29 mL/min) *Enoxaparin/Lovenox 30 mg SQ BID (WT < 150 kg, CrCl > 30 mL/min) AND/OR *Sequential Compression Device (SCD) 5 or more Highest Order ONE of the following medications: *Heparin 5000 units SQ TID (Preferred with Epidurals) *Enoxaparin/Lovenox 40 mg SQ daily (WT < 150 kg, CrCl > 30 mL/min) *Enoxaparin/Lovenox 30 mg SQ daily (WT < 150 kg, CrCl > 10-29 mL/min) *Enoxaparin/Lovenox 30 mg SQ BID (WT < 150 kg, CrCl > 30 mL/min) AND *Sequential Compression Device (SCD) Assessment and Plan - Plan 78 year old male admitted with an acute onset of left facial droop and slurred speech Possible Acute CVA vs. TIA CT negative MRI brain ordered Carotid Ultrasound Echocardiogram Follow on Telemetry Neurology following Neuro Checks A-fib and Polycythemia Vera are risks Atrial fibrillation and flutter No change to baseline treatments Follow on telemetry Continue Eliquis Diabetes mellitus type 2 Follow blood sugars Insulin sliding scale Diabetic diet Hypertension Allow permissive HTN Follow BP CKD NOS Follow renal function Polycythemia vera Check CBC DVT Prophylaxis SCDs
--- NOTE | 2018-09-06 15:35 | P.CONNEU ---
History of Present Illness Service: Neurology Primary Care Provider: UNKNOWN History of Present Illness: 78-year-old gentleman admitted for stroke evaluation. Woke up with symptoms of altered speech, dysarthria. Has been improving since admission. Patient is on oral anticoagulation and also time of onset unknown therefore not IV TPA candidate. Nonetheless stroke alert was called for wakeup stroke. CTA brain and carotids no significant vaso-occlusive disease. CT rapid perfusion study negative. Ambulate with a walker due to neuropathy does all his ADLs independently. Review of Systems All other systems reviewed negative except as stated in HPI [facility] - History History Provided By: Patient, Family Member - Medical History Medical History: Medical History (Last Updated 09/06/18 @ 11:36 by Lupe Gilbert RN) Atrial fibrillation and flutter Diabetes HIV (human immunodeficiency virus infection) Hypertension Kidney disease Polycythemia vera - Surgical History Surgical History: Surgical History (Last Updated 09/06/18 @ 11:36 by Lupe Gilbert RN) History of appendectomy - Family History Family History: Family History (Last Updated 09/06/18 @ 14:25 by Prince Schulte MD) Other Osteoarthritis - Tobacco History Smoking Status: Former smoker Tobacco Type: Cigarettes - Alcohol History How Often Do You Have a Drink Containing Alcohol: Never - Substance Use History Substance History: No History of Abuse - Travel History Recent Travel in the [place] Within the Last 8 Weeks: No Recent Travel Out of the Country Within the Last 8 Weeks: No - Immunization History Tetanus Immunization: >5 Years Medications and Allergies Active Medications: Active Medications Al Hydroxide/Mg Hydroxide (Milk Of Aaron Liq) 30 ml PO Q12H PRN PRN Reason: Mild Constipation Apixaban (Eliquis) 5 mg PO BID JAMAL Aspirin (Aspirin) 325 mg PO DAILY JAMAL Bisacodyl (Dulcolax Supp) 10 mg RECTAL DAILY PRN PRN Reason: SEVERE CONSITIPATION Dextrose (D50w Vial) 50 ml IV.PUSH UNSCH PRN PRN Reason: PER HYPOGLYCEMIA PROTOCOL Diltiazem HCl (Cardizem Cd 24hr) 360 mg PO DAILY JAMAL Duloxetine HCl (Cymbalta) 30 mg PO BID JAMAL Fenofibrate (Tricor) 145 mg PO DAILY JAMAL Glucagon (Glucagon Inj) 1 mg OTHER PRN PRN PRN Reason: for Hypoglycemia Protocol Sodium Chloride (Ns Inj) 1,000 mls @ 100 mls/hr IV.CONT .Q10H [facility] Last Infusion: 09/06/18 12:40 Dose: 100 mls/hr Insulin Aspart (Novolog Insulin Correctional Sugar Inj) 0 unit SQ ACHS [facility]; Protocol Last Admin: 09/06/18 12:06 Dose: Not Given Insulin Detemir (Levemir Inj) 35 unit SQ BID [facility] Lactulose (Lactulose Liq) 30 ml PO DAILY PRN PRN Reason: SEVERE CONSITIPATION Lisinopril (Prinivil) 5 mg PO DAILY [facility] Lorazepam (Ativan) 1 mg PO TID [facility] Nevirapine (Viramune) 200 mg PO Q12HR [facility] Ondansetron HCl (Zofran Inj) 4 mg IV.PUSH Q6H PRN PRN Reason: NAUSEA OR VOMITING Pantoprazole Sodium (Protonix) 40 mg PO DAILY [facility] Pregabalin (Lyrica) 75 mg PO TID [facility] Raltegravir (Isentress) 400 mg PO BID [facility] Senna/Docusate Sodium (Gia-Colace) 1 tab PO BID [facility] Sennosides (Senokot) 17.2 mg PO Q12H PRN PRN Reason: Moderate Constipation Valacyclovir HCl (Valtrex) 500 mg PO DAILY [facility] Allergies Allergy/AdvReac Type Severity Reaction Status Date / Time ephedrine Allergy Mild ANXIETY Verified 11/22/17 09:13 penicillin G Allergy Mild Rash Verified 11/22/17 09:13 FLONASE AdvReac Mild REDNESS Uncoded 01/04/17 10:59 AND CONGESTION Home Medications Medication Instructions Recorded Confirmed Type apixaban [Eliquis] 5 mg PO BID 09/06/18 09/06/18 History diltiazem HCl 360 mg PO DAILY 09/06/18 09/06/18 History duloxetine [Cymbalta] 30 mg PO BID 09/06/18 09/06/18 History esomeprazole magnesium [Nexium] 40 mg PO DAILY 09/06/18 09/06/18 History fenofibrate 160 mg PO DAILY 09/06/18 09/06/18 History insulin glargine [Lantus U-100 35 unit SUBCUT BID 09/06/18 09/06/18 History Insulin] insulin lispro [Humalog U-100 15 unit SUBCUT TIDAC 09/06/18 09/06/18 History Insulin] lisinopril 5 mg PO DAILY 09/06/18 09/06/18 History lorazepam [Ativan] 1 mg PO TID 09/06/18 09/06/18 History metoprolol tartrate 75 mg PO BID 09/06/18 09/06/18 History nevirapine 200 mg PO Q12H 09/06/18 09/06/18 History ondansetron HCl [Zofran] 4 mg PO Q6-8H PRN 09/06/18 09/06/18 History pregabalin [Lyrica] 75 mg PO TID 09/06/18 09/06/18 History raltegravir [Isentress] 400 mg PO BID 09/06/18 09/06/18 History valacyclovir 500 mg PO DAILY 09/06/18 09/06/18 History Exam Vital signs: Vital Signs 09/06/18 10:35 09/06/18 10:38 09/06/18 11:05 Temperature 99.5 F Pulse Rate 58 L 58 L Respiratory Rate 18 18 Blood Pressure 196/94 H 161/77 H Pulse Oximetry 94 L 96 95 09/06/18 12:51 09/06/18 14:00 Temperature Pulse Rate 54 L 52 L Respiratory Rate 18 Blood Pressure 174/82 H 155/77 H Pulse Oximetry 94 L 94 L Intake & Output 09/05/18 09/06/18 09/06/18 18:59 06:59 18:59 Weight 83.915 kg Narrative: GENERAL: in NAD, SKIN: Warm and dry. HEAD: Atraumatic. Normocephalic. EYES: Pupils equal and round. No scleral icterus. ENT: No nasal bleeding or discharge. Mucous membranes pink and moist. NECK: Trachea midline. No JVD. CARDIOVASCULAR: Regular rate and rhythm. RESPIRATORY: No accessory muscle use. GASTROINTESTINAL: Abdomen soft, non-tender, nondistended. MUSCULOSKELETAL: Extremities without clubbing, cyanosis, or edema. No obvious deformities. NEUROLOGICAL: Awake and alert. No aphasia, oriented x3, fluent articulate, reduced left nasolabial fold, OU 3-2mm, eomi, VFF, No drift, Motor grossly within normal limits. Five out of 5 muscle strength in the arms and legs. Tone normal in all 4 limbs, reduce pinprick light touch stocking glove distribution, gait not assessed secondary fall risk reflexes 1-2+ symmetric plantarflex her no clonus elicited PSYCHIATRIC: Appropriate mood and affect; insight and judgment normal. - Constitutional no acute distress - Routine HEENT Exam Head: Present: normocephalic Eye: Present: EOMI Results - Labs CBC & Chem 7: 09/06/18 10:40 09/06/18 10:40 Labs: Laboratory Results - last 24 hr 09/06/18 09/06/18 09/06/18 10:40 10:40 10:40 WBC 6.9 RBC 4.78 Hgb 16.6 POC Hgb (Calc) 16.7 Hct 47.9 POC Hct 49.0 MCV 100.1 H MCH 34.7 H MCHC 34.7 RDW 13.8 Plt Count 273 MPV 7.4 Neut % (Auto) 51.4 Lymph % (Auto) 34.9 [place] % (Auto) 10.8 H Eos % (Auto) 2.2 Baso % (Auto) 0.7 Neut # (Auto) 3.5 Lymph # (Auto) 2.4 [place] # (Auto) 0.7 Eos # (Auto) 0.2 Baso # (Auto) 0.0 WBC Differential . Differential Comment Auto diff final PT INR APTT Fibrinogen POC Sodium 143 Sodium 142 POC Potassium 3.4 L Potassium 3.5 POC Chloride 103 Chloride 106 Carbon Dioxide 25.9 Anion Gap 10 POC BUN 14 BUN 14 Creatinine 1.41 H POC Creatinine 1.2 Estimated GFR 49 L POC Glucose 120 H Random Glucose 118 H Calcium 8.7 Total Bilirubin 0.5 AST 39 H ALT 49 Alkaline Phosphatase 44 L Total Creatine Kinase CK-MB (CK-2) CK-MB (CK-2) % Troponin I Total Protein 7.5 Albumin 4.2 Urine Color Urine Clarity Urine pH Ur Specific [place] Urine Protein Urine Glucose (UA) Urine Ketones Urine Occult Blood Urine Nitrate Urine Bilirubin Urine Urobilinogen Ur Leukocyte Esterase Urine RBC Urine WBC Ur Squamous Epith Cells Urine Mucus Micro UA Comment Ur Microscopic Review Urine Culture Comments Urine Opiates Screen Ur Barbiturates Screen Ur Amphetamines Screen U Benzodiazepines Scrn Urine Cocaine Screen U Cannabinoids Screen Blood Type O Positive Blood Type Recheck Required Antibody Screen Negative 09/06/18 09/06/18 09/06/18 10:40 10:40 11:40 WBC RBC Hgb POC Hgb (Calc) Hct POC Hct MCV MCH MCHC RDW Plt Count MPV Neut % (Auto) Lymph % (Auto) [place] % (Auto) Eos % (Auto) Baso % (Auto) Neut # (Auto) Lymph # (Auto) [place] # (Auto) Eos # (Auto) Baso # (Auto) WBC Differential Differential Comment PT 12.5 H INR 1.2 APTT 30.5 Fibrinogen 229 POC Sodium Sodium POC Potassium Potassium POC Chloride Chloride Carbon Dioxide Anion Gap POC BUN BUN Creatinine POC Creatinine Estimated GFR POC Glucose Random Glucose Calcium Total Bilirubin AST ALT Alkaline Phosphatase Total Creatine Kinase 573 H CK-MB (CK-2) 8.3 H CK-MB (CK-2) % 1.4 Troponin I 0.03 Total Protein Albumin Urine Color Urine Clarity Urine pH Ur Specific [place] Urine Protein Urine Glucose (UA) Urine Ketones Urine Occult Blood Urine Nitrate Urine Bilirubin Urine Urobilinogen Ur Leukocyte Esterase Urine RBC Urine WBC Ur Squamous Epith Cells Urine Mucus Micro UA Comment Ur Microscopic Review Urine Culture Comments Urine Opiates Screen Neg Ur Barbiturates Screen Neg Ur Amphetamines Screen Neg U Benzodiazepines Scrn Neg Urine Cocaine Screen Neg U Cannabinoids Screen Neg Blood Type Blood Type Recheck Antibody Screen 09/06/18 09/06/18 09/06/18 11:40 12:02 15:12 WBC RBC Hgb POC Hgb (Calc) Hct POC Hct MCV MCH MCHC RDW Plt Count MPV Neut % (Auto) Lymph % (Auto) [place] % (Auto) Eos % (Auto) Baso % (Auto) Neut # (Auto) Lymph # (Auto) [place] # (Auto) Eos # (Auto) Baso # (Auto) WBC Differential Differential Comment PT INR APTT Fibrinogen POC Sodium Sodium POC Potassium Potassium POC Chloride Chloride Carbon Dioxide Anion Gap POC BUN BUN Creatinine POC Creatinine Estimated GFR POC Glucose 125 H 131 H Random Glucose Calcium Total Bilirubin AST ALT Alkaline Phosphatase Total Creatine Kinase CK-MB (CK-2) CK-MB (CK-2) % Troponin I Total Protein Albumin Urine Color Yellow Urine Clarity Clear Urine pH 7.0 Ur Specific [place] 1.020 Urine Protein Negative Urine Glucose (UA) 50 Urine Ketones Negative Urine Occult Blood Negative Urine Nitrate Negative Urine Bilirubin Negative Urine Urobilinogen Less than 2 Ur Leukocyte Esterase Negative Urine RBC 1 Urine WBC Less than 1 Ur Squamous Epith Cells <1 Urine Mucus Few H Micro UA Comment Culture not ind Ur Microscopic Review Not Reportable Urine Culture Comments Culture not ind Urine Opiates Screen Ur Barbiturates Screen Ur Amphetamines Screen U Benzodiazepines Scrn Urine Cocaine Screen U Cannabinoids Screen Blood Type Blood Type Recheck Antibody Screen - Imaging Impressions Chest X-Ray 09/06/18 10:38 CONCLUSION: Limited mid inspiratory study with no definite acute cardiopulmonary disease. Head CT 09/06/18 10:38 CONCLUSION: 1. No acute hemorrhage, mass or evidence of acute infarction. 2. Atrophy and chronic small vessel ischemic change. Report was called by [cecy Bradshaw to Dr. Ghotra in the emergency room at 1054 hours. ] Head CTA 09/06/18 10:38 CONCLUSION: 1. Unremarkable head CTA. No evidence for large vessel occlusion. Report was called by Dr. Neely to Dr. Whitehead at 11:22 am.] Neck CTA 09/06/18 10:38 CONCLUSION: 1. Essentially unremarkable study except for minimal atherosclerotic plaquing at the origin of both internal carotid arteries. CT CAD 09/06/18 10:39 CONCLUSION: Physiological brain perfusion parameters with RAPID analysis as above. The decision for consideration of therapy is multi factorial and multi disciplinary relying on subjective and objective clinical data. This data is not construed or intended to be the sole determinant of treatment eligibility. Review/Management - Diagnosis (1) TIA (transient ischemic attack) Code(s): G45.9 - Transient cerebral ischemic attack, unspecified Status: Acute Current Visit: Yes (2) Diabetic neuropathy Code(s): E11.40 - Type 2 diabetes mellitus with diabetic neuropathy, unspecified Status: Acute Current Visit: Yes (3) Hypertension Code(s): I10 - Essential (primary) hypertension Status: Acute Current Visit : Yes - Review/Management Plan: Possible right hemispheric lacunar embolic infarct CT brain carotids negative for any vaso-occlusive disease Event occurring on Eliquis full dose therapy patient states his been compliant with this Recommendation MRI brain if feasible; has a loop recorder; may erase old data As his event has occurred on Eliquis would suggest change in oral anticoagulant such as Pradaxa Follow-up lipid profile, hba1c Behavioral modification and risk factor reduction. Weight loss, blood pressure control, blood sugar control, lipid control. Exercise
[2018-09-06] MEDS: LORazepam 1 MG Tablet PO SCH (18:43)
[2018-09-06] MEDS: Pregabalin 75 MG Capsule PO SCH (18:43)
[2018-09-06 20:00] LABS: Chol/HDL Ratio 5.26 Ratio; HDL Cholesterol 40.1 mg/dL (40.0-60.0)
--- NOTE | 2018-09-06 20:02 | MR ---
EXAM DATE: 09/06/2018 7:54 PM EST AGE/SEX: 78 years / Male INDICATIONS: CVA. CLINICAL DATA: This is the patient's initial encounter. Patient reports that signs and symptoms have been present for 1 day and indicates a pain score of 0/10. MEDICAL/SURGICAL HISTORY: Diabetes mellitus type I. HTN, Kidney disease, COPD, Atrial Fibrillat ion, SKin Ca Appendectomy. Cataracts, R Shoulder, Skin Ca, [employer] Reveal Linq Loop Recorder COMPARISON: [facility] [place], CT HEAD W/O CONTRAST, 09/06/2018. . TECHNIQUE: Multiplanar, multisequence examination of the brain was performed without contrast. FINDINGS: Cerebrum: The ventricles are normal for age. No evidence of midline shift, mass lesion, hemorrhage or acute infarction. No extraaxial fluid collections are seen. The pituitary gland and suprasellar cistern are normal in configuration. White Matter: Very mild/small, scattered foci of chronic FLAIR signal abnormality in the white matte r of both cerebral hemispheres. Posterior Fossa: The cerebellum and brainstem are intact. The 4th ventricle is midline. The cerebel lopontine angle is unremarkable. The cerebellar tonsils are normal in position. Diffusion Imagin mm focus of mildly restricted diffusion involves the right side of the umesh. A 4 mm focus is seen of the medial right temporal lobe. Extracranial: The visualized portions of the orbits and paranasal sinuses are unremarkable. CONCLUSION: 1. 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 2. 4 mm acute infarct medially of the right temporal lobe. 3. No bleed, mass effect or midline shift demonstrated. 4. Very mild chronic white matter changes. Electronically signed by: Tim Smith MD 09/06/2018 8:01 PM EST
[2018-09-06 20:17] LABS: Hemoglobin A1c 5.4 % (4.3-6.0)
[2018-09-06] MEDS: Insulin Detemir Inj 1,000 UNIT/10 ML Vial SQ SCH (22:41)
[2018-09-06] MEDS: Senna/Docusate Sodium 8.6/50 MG Tablet PO SCH (22:42)
[2018-09-06] MEDS ORDERED: RALTEGRAVIR 400 MG PO SCH (23:00)
[2018-09-06] MEDS ORDERED: LORazepam 1 MG Tablet PO ONE (23:59)
[2018-09-07 00:10] VITALS: O2SAT 94
[2018-09-07 05:56] LABS: Baso % (Auto) 0.5 % (0.0-2.0); Eos # (Auto) 0.1 th/mm3 (0.0-0.4); Eos % (Auto) 1.8 % (0.0-4.0); Hematocrit 44.5 % (39.0-51.0); Hemoglobin 15.5 gm/dL (13.0-17.0); Lymph # (Auto) 2.5 th/mm3 (1.0-4.8); Lymph % (Auto) 30.7 % (9.0-44.0); Mean Corpuscular Hemoglobin 34.3 pg (27.0-34.0); Mean Corpuscular Volume 98.2 fL (80.0-100.0); Mean Platelet Volume 7.7 fL (7.0-11.0); Mono # (Auto) 0.9 th/mm3 (0.0-0.9); Mono % (Auto) 11.2 % (0.0-8.0); Neut # (Auto) 4.5 th/mm3 (1.8-7.7); Neut % (Auto) 55.8 % (16.0-70.0); Platelet Count 236 th/mm3 (150-450); Red Blood Count 4.53 mil/mm3 (4.50-5.90); Red Cell Distribution Width 13.7 % (11.6-17.2)
[2018-09-07 06:12] LABS: Albumin 3.9 g/dL (3.4-5.0); Anion Gap 9 meq/L (5-15); Aspartate Aminotransferase 69 U/L (15-37); Blood Urea Nitrogen 12 mg/dL (7-18); Calcium 8.5 mg/dL (8.5-10.1); Carbon Dioxide 28.5 meq/L (21.0-32.0); Chloride 107 meq/L (98-107); Glomerular Filtration Rate 54 mL/min (>89); Glucose,Random 82 mg/dL (74-106); Potassium 3.6 meq/L (3.5-5.1); Sodium 144 meq/L (136-145)
[2018-09-07 06:13] LABS: Alanine Aminotransferase 47 U/L (12-78)
[2018-09-07 06:15] LABS: Alkaline Phosphatase 33 U/L (45-117); Total Protein 6.9 g/dL (6.4-8.2)
--- NOTE | 2018-09-07 06:56 | P.PNNEU ---
Subjective Subjective Comments: No cp, no dyspnea, no cummins, no focal weakness, no vision loss Active Medications: Active Medications Al Hydroxide/Mg Hydroxide (Milk Of Magnesia Liq) 30 ml PO Q12H PRN PRN Reason: Mild Constipation Aspirin (Aspirin) 325 mg PO DAILY [facility] Bisacodyl (Dulcolax Supp) 10 mg RECTAL DAILY PRN PRN Reason: SEVERE CONSITIPATION Dabigatran (Pradaxa) 75 mg PO BID [facility] Last Admin: 09/06/18 22:42 Dose: 75 mg Dextrose (D50w Vial) 50 ml IV.PUSH UNSCH PRN PRN Reason: PER HYPOGLYCEMIA PROTOCOL Diltiazem HCl (Cardizem Cd 24hr) 360 mg PO DAILY [facility] Duloxetine HCl (Cymbalta) 30 mg PO BID [facility] Last Admin: 09/06/18 22:40 Dose: 30 mg Fenofibrate (Tricor) 145 mg PO DAILY [facility] Glucagon (Glucagon Inj) 1 mg OTHER PRN PRN PRN Reason: for Hypoglycemia Protocol Sodium Chloride (Ns Inj) 1,000 mls @ 100 mls/hr IV.CONT .Q10H [facility] Last Admin: 09/06/18 23:06 Dose: 100 mls/hr Insulin Aspart (Novolog Insulin Correctional Sugar Inj) 0 unit SQ ACHS [facility]; Protocol Last Admin: 09/06/18 22:41 Dose: Not Given Insulin Detemir (Levemir Inj) 35 unit SQ BID [facility] Last Admin: 09/06/18 22:41 Dose: 35 unit Lactulose (Lactulose Liq) 30 ml PO DAILY PRN PRN Reason: SEVERE CONSITIPATION Lisinopril (Prinivil) 5 mg PO DAILY [facility] Lorazepam (Ativan) 1 mg PO TID [facility] Last Admin: 09/06/18 18:43 Dose: 1 mg Nevirapine (Viramune) 200 mg PO Q12HR [facility] Last Admin: 09/06/18 23:04 Dose: 200 mg Ondansetron HCl (Zofran Inj) 4 mg IV.PUSH Q6H PRN PRN Reason: NAUSEA OR VOMITING Pantoprazole Sodium (Protonix) 40 mg PO DAILY [facility] Pt Own Raltegravir ( Isentress) 400 Mg Tablet 1 each PO BID [facility] Pregabalin (Lyrica) 75 mg PO TID [facility] Last Admin: 09/06/18 18:43 Dose: 75 mg Senna/Docusate Sodium (Gia-Colace) 1 tab PO BID [facility] Last Admin: 09/06/18 22:42 Dose: Not Given Sennosides (Senokot) 17.2 mg PO Q12H PRN PRN Reason: Moderate Constipation Valacyclovir HCl (Valtrex) 500 mg PO DAILY [facility] Allergies/Adverse Reactions: Allergies Allergy/AdvReac Type Severity Reaction Status Date / Time ephedrine Allergy Mild ANXIETY Verified 11/22/17 09:13 penicillin G Allergy Mild Rash Verified 11/22/17 09:13 FLONASE AdvReac Mild REDNESS Uncoded 01/04/17 10:59 AND CONGESTION Review of Systems All other systems reviewed negative except as stated in HPI Physical Exam Vital signs: Vital Signs 09/06/18 10:35 09/06/18 10:38 09/06/18 11:05 Temperature 99.5 F Pulse Rate 58 L 58 L Respiratory Rate 18 18 Blood Pressure 196/94 H 161/77 H Pulse Oximetry 94 L 96 95 09/06/18 12:51 09/06/18 14:00 09/06/18 20:00 Temperature 97.8 F Pulse Rate 54 L 52 L 74 Respiratory Rate 18 18 18 Blood Pressure 174/82 H 155/77 H 114/59 L Pulse Oximetry 94 L 94 L 93 L 09/07/18 00:00 09/07/18 04:00 Temperature 97.3 F L 97.9 F Pulse Rate 69 66 Respiratory Rate 18 18 Blood Pressure 197/90 H 193/93 H Pulse Oximetry 94 L 94 L Intake & Output 09/06/18 09/06/18 09/07/18 06:59 18:59 06:59 Intake Total 1480 / 1480 Balance 1480 / 1480 Weight 83.915 kg 83.915 kg Intake: IV 1000 / 1000 NS Inj 1,000 ML @ 100 mls/hr IV 1000 / 1000 .CONT .Q10H [facility] Rx#:[id number] Oral 480 / 480 Other: # Voids 2 Date of Last Bowel Movement 09/06/18 Weight On Admission 83.915 kg Narrative: GENERAL: in NAD, SKIN: Warm and dry. HEAD: Atraumatic. Normocephalic. EYES: Pupils equal and round. No scleral icterus. ENT: No nasal bleeding or discharge. Mucous membranes pink and moist. NECK: Trachea midline. No JVD. CARDIOVASCULAR: Regular rate and rhythm. RESPIRATORY: No accessory muscle use. GASTROINTESTINAL: Abdomen soft, non-tender, nondistended. MUSCULOSKELETAL: Extremities without clubbing, cyanosis, or edema. No obvious deformities. NEUROLOGICAL: Awake and alert. No aphasia, oriented x3, fluent articulate, reduced left nasolabial fold, OU 3-2mm, eomi, VFF, No drift, Motor grossly within normal limits. Five out of 5 muscle strength in the arms and legs. Tone normal in all 4 limbs, reduce pinprick light touch stocking glove distribution, gait not assessed secondary fall risk reflexes 1-2+ symmetric plantarflex her no clonus elicited PSYCHIATRIC: Appropriate mood and affect; insight and judgment normal. - Constitutional no acute distress - Routine HEENT Exam Head: Present: normocephalic Eye: Present: EOMI Objective Laboratory Results - last 24 hr 09/06/18 09/06/18 09/06/18 10:40 10:40 10:40 WBC 6.9 RBC 4.78 Hgb 16.6 POC Hgb (Calc) 16.7 Hct 47.9 POC Hct 49.0 MCV 100.1 H MCH 34.7 H MCHC 34.7 RDW 13.8 Plt Count 273 MPV 7.4 Neut % (Auto) 51.4 Lymph % (Auto) 34.9 Garfield % (Auto) 10.8 H Eos % (Auto) 2.2 Baso % (Auto) 0.7 Neut # (Auto) 3.5 Lymph # (Auto) 2.4 Garfield # (Auto) 0.7 Eos # (Auto) 0.2 Baso # (Auto) 0.0 WBC Differential . Differential Comment Auto diff final PT INR APTT Fibrinogen POC Sodium 143 Sodium 142 POC Potassium 3.4 L Potassium 3.5 POC Chloride 103 Chloride 106 Carbon Dioxide 25.9 Anion Gap 10 POC BUN 14 BUN 14 Creatinine 1.41 H POC Creatinine 1.2 Estimated GFR 49 L POC Glucose 120 H Random Glucose 118 H Hemoglobin A1c Calcium 8.7 Total Bilirubin 0.5 AST 39 H ALT 49 Alkaline Phosphatase 44 L Total Creatine Kinase CK-MB (CK-2) CK-MB (CK-2) % Troponin I Total Protein 7.5 Albumin 4.2 Triglycerides Cholesterol LDL Cholesterol, Calc HDL Cholesterol Cholesterol/HDL Ratio Urine Color Urine Clarity Urine pH Ur Specific Deputy Urine Protein Urine Glucose (UA) Urine Ketones Urine Occult Blood Urine Nitrate Urine Bilirubin Urine Urobilinogen Ur Leukocyte Esterase Urine RBC Urine WBC Ur Squamous Epith Cells Urine Mucus Micro UA Comment Ur Microscopic Review Urine Culture Comments Urine Opiates Screen Ur Barbiturates Screen Ur Amphetamines Screen U Benzodiazepines Scrn Urine Cocaine Screen U Cannabinoids Screen Blood Type O Positive Blood Type Recheck Required Antibody Screen Negative 09/06/18 09/06/18 09/06/18 10:40 10:40 10:40 WBC RBC Hgb POC Hgb (Calc) Hct POC Hct MCV MCH MCHC RDW Plt Count MPV Neut % (Auto) Lymph % (Auto) Garfield % (Auto) Eos % (Auto) Baso % (Auto) Neut # (Auto) Lymph # (Auto) Garfield # (Auto) Eos # (Auto) Baso # (Auto) WBC Differential Differential Comment PT 12.5 H INR 1.2 APTT 30.5 Fibrinogen 229 POC Sodium Sodium POC Potassium Potassium POC Chloride Chloride Carbon Dioxide Anion Gap POC BUN BUN Creatinine POC Creatinine Estimated GFR POC Glucose Random Glucose Hemoglobin A1c 5.4 Calcium Total Bilirubin AST ALT Alkaline Phosphatase Total Creatine Kinase 573 H CK-MB (CK-2) 8.3 H CK-MB (CK-2) % 1.4 Troponin I 0.03 Total Protein Albumin Triglycerides Cholesterol LDL Cholesterol, Calc HDL Cholesterol Cholesterol/HDL Ratio Urine Color Urine Clarity Urine pH Ur Specific Deputy Urine Protein Urine Glucose (UA) Urine Ketones Urine Occult Blood Urine Nitrate Urine Bilirubin Urine Urobilinogen Ur Leukocyte Esterase Urine RBC Urine WBC Ur Squamous Epith Cells Urine Mucus Micro UA Comment Ur Microscopic Review Urine Culture Comments Urine Opiates Screen Ur Barbiturates Screen Ur Amphetamines Screen U Benzodiazepines Scrn Urine Cocaine Screen U Cannabinoids Screen Blood Type Blood Type Recheck Antibody Screen 09/06/18 09/06/18 09/06/18 10:40 11:40 11:40 WBC RBC Hgb POC Hgb (Calc) Hct POC Hct MCV MCH MCHC RDW Plt Count MPV Neut % (Auto) Lymph % (Auto) Garfield % (Auto) Eos % (Auto) Baso % (Auto) Neut # (Auto) Lymph # (Auto) Garfield # (Auto) Eos # (Auto) Baso # (Auto) WBC Differential Differential Comment PT INR APTT Fibrinogen POC Sodium Sodium POC Potassium Potassium POC Chloride Chloride Carbon Dioxide Anion Gap POC BUN BUN Creatinine POC Creatinine Estimated GFR POC Glucose Random Glucose Hemoglobin A1c Calcium Total Bilirubin AST ALT Alkaline Phosphatase Total Creatine Kinase CK-MB (CK-2) CK-MB (CK-2) % Troponin I Total Protein Albumin Triglycerides 315 H Cholesterol 211 H LDL Cholesterol, Calc 108 H HDL Cholesterol 40.1 Cholesterol/HDL Ratio 5.26 Urine Color Yellow Urine Clarity Clear Urine pH 7.0 Ur Specific Deputy 1.020 Urine Protein Negative Urine Glucose (UA) 50 Urine Ketones Negative Urine Occult Blood Negative Urine Nitrate Negative Urine Bilirubin Negative Urine Urobilinogen Less than 2 Ur Leukocyte Esterase Negative Urine RBC 1 Urine WBC Less than 1 Ur Squamous Epith Cells <1 Urine Mucus Few H Micro UA Comment Culture not ind Ur Microscopic Review Not Reportable Urine Culture Comments Culture not ind Urine Opiates Screen Neg Ur Barbiturates Screen Neg Ur Amphetamines Screen Neg U Benzodiazepines Scrn Neg Urine Cocaine Screen Neg U Cannabinoids Screen Neg Blood Type Blood Type Recheck Antibody Screen 09/06/18 09/06/18 09/06/18 12:02 15:12 16:59 WBC RBC Hgb POC Hgb (Calc) Hct POC Hct MCV MCH MCHC RDW Plt Count MPV Neut % (Auto) Lymph % (Auto) Garfield % (Auto) Eos % (Auto) Baso % (Auto) Neut # (Auto) Lymph # (Auto) Garfield # (Auto) Eos # (Auto) Baso # (Auto) WBC Differential Differential Comment PT INR APTT Fibrinogen POC Sodium Sodium POC Potassium Potassium POC Chloride Chloride Carbon Dioxide Anion Gap POC BUN BUN Creatinine POC Creatinine Estimated GFR POC Glucose 125 H 131 H 122 H Random Glucose Hemoglobin A1c Calcium Total Bilirubin AST ALT Alkaline Phosphatase Total Creatine Kinase CK-MB (CK-2) CK-MB (CK-2) % Troponin I Total Protein Albumin Triglycerides Cholesterol LDL Cholesterol, Calc HDL Cholesterol Cholesterol/HDL Ratio Urine Color Urine Clarity Urine pH Ur Specific Deputy Urine Protein Urine Glucose (UA) Urine Ketones Urine Occult Blood Urine Nitrate Urine Bilirubin Urine Urobilinogen Ur Leukocyte Esterase Urine RBC Urine WBC Ur Squamous Epith Cells Urine Mucus Micro UA Comment Ur Microscopic Review Urine Culture Comments Urine Opiates Screen Ur Barbiturates Screen Ur Amphetamines Screen U Benzodiazepines Scrn Urine Cocaine Screen U Cannabinoids Screen Blood Type Blood Type Recheck Antibody Screen 09/06/18 09/07/18 09/07/18 21:03 03:26 04:34 WBC 8.0 RBC 4.53 Hgb 15.5 POC Hgb (Calc) Hct 44.5 POC Hct MCV 98.2 MCH 34.3 H MCHC 35.0 RDW 13.7 Plt Count 236 MPV 7.7 Neut % (Auto) 55.8 Lymph % (Auto) 30.7 Garfield % (Auto) 11.2 H Eos % (Auto) 1.8 Baso % (Auto) 0.5 Neut # (Auto) 4.5 Lymph # (Auto) 2.5 Garfield # (Auto) 0.9 Eos # (Auto) 0.1 Baso # (Auto) 0.0 WBC Differential . Differential Comment Auto diff final PT INR APTT Fibrinogen POC Sodium Sodium POC Potassium Potassium POC Chloride Chloride Carbon Dioxide Anion Gap POC BUN BUN Creatinine POC Creatinine Estimated GFR POC Glucose 126 H 86 Random Glucose Hemoglobin A1c Calcium Total Bilirubin AST ALT Alkaline Phosphatase Total Creatine Kinase CK-MB (CK-2) CK-MB (CK-2) % Troponin I Total Protein Albumin Triglycerides Cholesterol LDL Cholesterol, Calc HDL Cholesterol Cholesterol/HDL Ratio Urine Color Urine Clarity Urine pH Ur Specific Deputy Urine Protein Urine Glucose (UA) Urine Ketones Urine Occult Blood Urine Nitrate Urine Bilirubin Urine Urobilinogen Ur Leukocyte Esterase Urine RBC Urine WBC Ur Squamous Epith Cells Urine Mucus Micro UA Comment Ur Microscopic Review Urine Culture Comments Urine Opiates Screen Ur Barbiturates Screen Ur Amphetamines Screen U Benzodiazepines Scrn Urine Cocaine Screen U Cannabinoids Screen Blood Type Blood Type Recheck Antibody Screen 09/07/18 04:34 WBC RBC Hgb POC Hgb (Calc) Hct POC Hct MCV MCH MCHC RDW Plt Count MPV Neut % (Auto) Lymph % (Auto) Garfield % (Auto) Eos % (Auto) Baso % (Auto) Neut # (Auto) Lymph # (Auto) Garfield # (Auto) Eos # (Auto) Baso # (Auto) WBC Differential Differential Comment PT INR APTT Fibrinogen POC Sodium Sodium 144 POC Potassium Potassium 3.6 POC Chloride Chloride 107 Carbon Dioxide 28.5 Anion Gap 9 POC BUN BUN 12 Creatinine 1.29 POC Creatinine Estimated GFR 54 L POC Glucose Random Glucose 82 Hemoglobin A1c Calcium 8.5 Total Bilirubin 0.6 AST 69 H ALT 47 Alkaline Phosphatase 33 L Total Creatine Kinase CK-MB (CK-2) CK-MB (CK-2) % Troponin I Total Protein 6.9 D Albumin 3.9 Triglycerides Cholesterol LDL Cholesterol, Calc HDL Cholesterol Cholesterol/HDL Ratio Urine Color Urine Clarity Urine pH Ur Specific Deputy Urine Protein Urine Glucose (UA) Urine Ketones Urine Occult Blood Urine Nitrate Urine Bilirubin Urine Urobilinogen Ur Leukocyte Esterase Urine RBC Urine WBC Ur Squamous Epith Cells Urine Mucus Micro UA Comment Ur Microscopic Review Urine Culture Comments Urine Opiates Screen Ur Barbiturates Screen Ur Amphetamines Screen U Benzodiazepines Scrn Urine Cocaine Screen U Cannabinoids Screen Blood Type Blood Type Recheck Antibody Screen Review/Management - Diagnosis (1) Acute embolic stroke Code(s): I63.9 - Cerebral infarction, unspecified Status: Acute Current Visit: Yes (2) Diabetic neuropathy Code(s): E11.40 - Type 2 diabetes mellitus with diabetic neuropathy, unspecified Status: Acute Current Visit: Yes (3) Hypertension Code(s): I10 - Essential (primary) hypertension Status: Acute Current Visit : Yes - Review/Management Plan: Right pontine, tiny right medial temporal embolic stroke CT brain carotids negative for any vaso-occlusive disease Event occurring on Eliquis full dose therapy Recommendation Discussed with cardiology. Change to Pradaxa 75 mg twice daily. After 1 week increase to full dose of 150 twice daily Risk benefits discussed with patient including intracranial hemorrhage, stomach bleeding agrees with therapy Permissive hypertension over the next 1-2 weeks Would add statin if no contraindication If cleared by therapy can be discharged home follow-up in the outpatient setting in 2-3 weeks Hydration No driving until seen in follow-up Behavioral modification and risk factor reduction. Weight loss, blood pressure control, blood sugar control, lipid control. Exercise
[2018-09-07] MEDS: Pregabalin 75 MG Capsule PO SCH ×2 (08:44→13:00)
[2018-09-07] MEDS: Insulin Detemir Inj 1,000 UNIT/10 ML Vial SQ SCH (08:45)
[2018-09-07] MEDS: Senna/Docusate Sodium 8.6/50 MG Tablet PO SCH (08:45)
[2018-09-07] MEDS: LORazepam 1 MG Tablet PO SCH ×2 (08:45→13:00)
[2018-09-07] MEDS: Insulin NovoLOG Aspart Correctional Sugar Inj SQ SCH ×2 (08:51→12:17)
[2018-09-07] MEDS: Sod Chloride 0.9% Inj 1,000 ML IV.CONT SCH (08:52)
[2018-09-07] MEDS ORDERED: dilTIAZem CD 180 MG Capsule PO SCH (09:00)
[2018-09-07] MEDS ORDERED: Fenofibrate 145 MG Tablet PO SCH (09:00)
[2018-09-07] MEDS ORDERED: Lisinopril 5 MG Tablet PO SCH (09:00)
[2018-09-07] MEDS ORDERED: valACYclovir 500 MG Tab PO SCH (09:00)
[2018-09-07] MEDS ORDERED: Aspirin 325 MG Tablet PO SCH (09:00)
[2018-09-07 09:33] VITALS: BP 159/76; RESP 16; TEMP 98.5
--- NOTE | 2018-09-07 10:13 | P.DS ---
Date of admission: 09/06/18 11:47 Primary care physician: UNKNOWN Brief History from admission: Mr. Rodriguez is a 78 year old male. He has no prior history of CVA but reports that this morning he had a left facial droop and slurred speech. When I am seeing him in the ER, he reports that he is back to baseline and his symptoms are resolved. He uses a walker at baseline and reports a fall with head strike earlier in the week. Imaging with CT in the ER shows no acute bleeds or masses. No evidence of ischemia on CT. No other complaints at time of interview. DS: Medications - Discharge Medications Prescriptions: atorvastatin 40 mg PO HS #30 tab dabigatran etexilate [Pradaxa] 150 mg PO DIRECTED #60 cap dabigatran etexilate [Pradaxa] 75 mg PO DIRECTED #14 cap DS: Summary Hospital Course: Mr. Rodriguez is a male. He came in to the hospital secondary to slurred speech and left facial droop. Workup included an MRI which was positive for acute CVA (Right pontine, tiny right medial temporal embolic stroke), the rest of his workup is negative (carotid CTA, head CT/CTA). He has resolution of his symptoms. With onset of stroke he had been on Eliquis. This is changed to Pradaxa. Patient is cleared by neurology for discharge today. Patient medically stable and cleared for discharge home today. - Time Spent with Patient Total time spent providing and/or coordinating discharge services: Less than 30 minutes - Quality: Stroke Last date observed well: 09/05/18 - Quality: VTE Deep Vein Thrombosis/Pulmonary Embolism Present on Admission: No Exam Vital signs: Vital Signs 09/06/18 10:35 09/06/18 10:38 09/06/18 11:05 Temperature 99.5 F Pulse Rate 58 L 58 L Respiratory Rate 18 18 Blood Pressure 196/94 H 161/77 H Pulse Oximetry 94 L 96 95 09/06/18 12:51 09/06/18 14:00 09/06/18 20:00 Temperature 97.8 F Pulse Rate 54 L 52 L 74 Respiratory Rate 18 18 18 Blood Pressure 174/82 H 155/77 H 114/59 L Pulse Oximetry 94 L 94 L 93 L 09/07/18 00:00 09/07/18 04:00 09/07/18 08:00 Temperature 97.3 F L 97.9 F 98.5 F Pulse Rate 69 66 69 Respiratory Rate 18 18 16 Blood Pressure 197/90 H 193/93 H 159/76 H Pulse Oximetry 94 L 94 L 94 L Intake & Output 09/06/18 09/07/18 09/07/18 18:59 06:59 18:59 Intake Total 1480 / 1480 1000 / 1000 Balance 1480 / 1480 1000 / 1000 Weight 83.915 kg 83.915 kg Intake: IV 1000 / 1000 1000 / 1000 NS Inj 1,000 ML @ 100 mls/hr IV 1000 / 1000 1000 / 1000 .CONT .Q10H JAMAL Rx#:[id number] Oral 480 / 480 Other: # Voids 2 Date of Last Bowel Movement 09/06/18 Weight On Admission 83.915 kg Results Procedures completed during hospitalization: None Labs on day of discharge: Labs from last 24 hours 09/07/18 09/07/18 09/07/18 08:41 04:34 04:34 WBC 8.0 RBC 4.53 Hgb 15.5 POC Hgb (Calc) Hct 44.5 POC Hct MCV 98.2 MCH 34.3 H MCHC 35.0 RDW 13.7 Plt Count 236 MPV 7.7 Neut % (Auto) 55.8 Lymph % (Auto) 30.7 [place] % (Auto) 11.2 H Eos % (Auto) 1.8 Baso % (Auto) 0.5 Neut # (Auto) 4.5 Lymph # (Auto) 2.5 [place] # (Auto) 0.9 Eos # (Auto) 0.1 Baso # (Auto) 0.0 WBC Differential . Differential Comment Auto diff final PT INR APTT Fibrinogen POC Sodium Sodium 144 POC Potassium Potassium 3.6 POC Chloride Chloride 107 Carbon Dioxide 28.5 Anion Gap 9 POC BUN BUN 12 Creatinine 1.29 POC Creatinine Estimated GFR 54 L POC Glucose 100 Random Glucose 82 Hemoglobin A1c Calcium 8.5 Total Bilirubin 0.6 AST 69 H ALT 47 Alkaline Phosphatase 33 L Total Creatine Kinase CK-MB (CK-2) CK-MB (CK-2) % Troponin I Total Protein 6.9 D Albumin 3.9 Triglycerides Cholesterol LDL Cholesterol, Calc HDL Cholesterol Cholesterol/HDL Ratio Urine Color Urine Clarity Urine pH Ur Specific [place] Urine Protein Urine Glucose (UA) Urine Ketones Urine Occult Blood Urine Nitrate Urine Bilirubin Urine Urobilinogen Ur Leukocyte Esterase Urine RBC Urine WBC Ur Squamous Epith Cells Urine Mucus Micro UA Comment Ur Microscopic Review Urine Culture Comments Urine Opiates Screen Ur Barbiturates Screen Ur Amphetamines Screen U Benzodiazepines Scrn Urine Cocaine Screen U Cannabinoids Screen Blood Type Blood Type Recheck Antibody Screen 09/07/18 09/06/18 09/06/18 03:26 21:03 16:59 WBC RBC Hgb POC Hgb (Calc) Hct POC Hct MCV MCH MCHC RDW Plt Count MPV Neut % (Auto) Lymph % (Auto) [place] % (Auto) Eos % (Auto) Baso % (Auto) Neut # (Auto) Lymph # (Auto) [place] # (Auto) Eos # (Auto) Baso # (Auto) WBC Differential Differential Comment PT INR APTT Fibrinogen POC Sodium Sodium POC Potassium Potassium POC Chloride Chloride Carbon Dioxide Anion Gap POC BUN BUN Creatinine POC Creatinine Estimated GFR POC Glucose 86 126 H 122 H Random Glucose Hemoglobin A1c Calcium Total Bilirubin AST ALT Alkaline Phosphatase Total Creatine Kinase CK-MB (CK-2) CK-MB (CK-2) % Troponin I Total Protein Albumin Triglycerides Cholesterol LDL Cholesterol, Calc HDL Cholesterol Cholesterol/HDL Ratio Urine Color Urine Clarity Urine pH Ur Specific [place] Urine Protein Urine Glucose (UA) Urine Ketones Urine Occult Blood Urine Nitrate Urine Bilirubin Urine Urobilinogen Ur Leukocyte Esterase Urine RBC Urine WBC Ur Squamous Epith Cells Urine Mucus Micro UA Comment Ur Microscopic Review Urine Culture Comments Urine Opiates Screen Ur Barbiturates Screen Ur Amphetamines Screen U Benzodiazepines Scrn Urine Cocaine Screen U Cannabinoids Screen Blood Type Blood Type Recheck Antibody Screen 09/06/18 09/06/18 09/06/18 15:12 12:02 11:40 WBC RBC Hgb POC Hgb (Calc) Hct POC Hct MCV MCH MCHC RDW Plt Count MPV Neut % (Auto) Lymph % (Auto) [place] % (Auto) Eos % (Auto) Baso % (Auto) Neut # (Auto) Lymph # (Auto) [place] # (Auto) Eos # (Auto) Baso # (Auto) WBC Differential Differential Comment PT INR APTT Fibrinogen POC Sodium Sodium POC Potassium Potassium POC Chloride Chloride Carbon Dioxide Anion Gap POC BUN BUN Creatinine POC Creatinine Estimated GFR POC Glucose 131 H 125 H Random Glucose Hemoglobin A1c Calcium Total Bilirubin AST ALT Alkaline Phosphatase Total Creatine Kinase CK-MB (CK-2) CK-MB (CK-2) % Troponin I Total Protein Albumin Triglycerides Cholesterol LDL Cholesterol, Calc HDL Cholesterol Cholesterol/HDL Ratio Urine Color Yellow Urine Clarity Clear Urine pH 7.0 Ur Specific [place] 1.020 Urine Protein Negative Urine Glucose (UA) 50 Urine Ketones Negative Urine Occult Blood Negative Urine Nitrate Negative Urine Bilirubin Negative Urine Urobilinogen Less than 2 Ur Leukocyte Esterase Negative Urine RBC 1 Urine WBC Less than 1 Ur Squamous Epith Cells <1 Urine Mucus Few H Micro UA Comment Culture not ind Ur Microscopic Review Not Reportable Urine Culture Comments Culture not ind Urine Opiates Screen Ur Barbiturates Screen Ur Amphetamines Screen U Benzodiazepines Scrn Urine Cocaine Screen U Cannabinoids Screen Blood Type Blood Type Recheck Antibody Screen 09/06/18 09/06/18 09/06/18 11:40 10:40 10:40 WBC RBC Hgb POC Hgb (Calc) Hct POC Hct MCV MCH MCHC RDW Plt Count MPV Neut % (Auto) Lymph % (Auto) [place] % (Auto) Eos % (Auto) Baso % (Auto) Neut # (Auto) Lymph # (Auto) [place] # (Auto) Eos # (Auto) Baso # (Auto) WBC Differential Differential Comment PT INR APTT Fibrinogen POC Sodium Sodium POC Potassium Potassium POC Chloride Chloride Carbon Dioxide Anion Gap POC BUN BUN Creatinine POC Creatinine Estimated GFR POC Glucose Random Glucose Hemoglobin A1c 5.4 Calcium Total Bilirubin AST ALT Alkaline Phosphatase Total Creatine Kinase CK-MB (CK-2) CK-MB (CK-2) % Troponin I Total Protein Albumin Triglycerides 315 H Cholesterol 211 H LDL Cholesterol, Calc 108 H HDL Cholesterol 40.1 Cholesterol/HDL Ratio 5.26 Urine Color Urine Clarity Urine pH Ur Specific [place] Urine Protein Urine Glucose (UA) Urine Ketones Urine Occult Blood Urine Nitrate Urine Bilirubin Urine Urobilinogen Ur Leukocyte Esterase Urine RBC Urine WBC Ur Squamous Epith Cells Urine Mucus Micro UA Comment Ur Microscopic Review Urine Culture Comments Urine Opiates Screen Neg Ur Barbiturates Screen Neg Ur Amphetamines Screen Neg U Benzodiazepines Scrn Neg Urine Cocaine Screen Neg U Cannabinoids Screen Neg Blood Type Blood Type Recheck Antibody Screen 09/06/18 09/06/18 09/06/18 10:40 10:40 10:40 WBC RBC Hgb POC Hgb (Calc) 16.7 Hct POC Hct 49.0 MCV MCH MCHC RDW Plt Count MPV Neut % (Auto) Lymph % (Auto) [place] % (Auto) Eos % (Auto) Baso % (Auto) Neut # (Auto) Lymph # (Auto) [place] # (Auto) Eos # (Auto) Baso # (Auto) WBC Differential Differential Comment PT 12.5 H INR 1.2 APTT 30.5 Fibrinogen 229 POC Sodium 143 Sodium 142 POC Potassium 3.4 L Potassium 3.5 POC Chloride 103 Chloride 106 Carbon Dioxide 25.9 Anion Gap 10 POC BUN 14 BUN 14 Creatinine 1.41 H POC Creatinine 1.2 Estimated GFR 49 L POC Glucose 120 H Random Glucose 118 H Hemoglobin A1c Calcium 8.7 Total Bilirubin 0.5 AST 39 H ALT 49 Alkaline Phosphatase 44 L Total Creatine Kinase 573 H CK-MB (CK-2) 8.3 H CK-MB (CK-2) % 1.4 Troponin I 0.03 Total Protein 7.5 Albumin 4.2 Triglycerides Cholesterol LDL Cholesterol, Calc HDL Cholesterol Cholesterol/HDL Ratio Urine Color Urine Clarity Urine pH Ur Specific [place] Urine Protein Urine Glucose (UA) Urine Ketones Urine Occult Blood Urine Nitrate Urine Bilirubin Urine Urobilinogen Ur Leukocyte Esterase Urine RBC Urine WBC Ur Squamous Epith Cells Urine Mucus Micro UA Comment Ur Microscopic Review Urine Culture Comments Urine Opiates Screen Ur Barbiturates Screen Ur Amphetamines Screen U Benzodiazepines Scrn Urine Cocaine Screen U Cannabinoids Screen Blood Type Blood Type Recheck Antibody Screen 09/06/18 09/06/18 10:40 10:40 WBC 6.9 RBC 4.78 Hgb 16.6 POC Hgb (Calc) Hct 47.9 POC Hct MCV 100.1 H MCH 34.7 H MCHC 34.7 RDW 13.8 Plt Count 273 MPV 7.4 Neut % (Auto) 51.4 Lymph % (Auto) 34.9 [place] % (Auto) 10.8 H Eos % (Auto) 2.2 Baso % (Auto) 0.7 Neut # (Auto) 3.5 Lymph # (Auto) 2.4 [place] # (Auto) 0.7 Eos # (Auto) 0.2 Baso # (Auto) 0.0 WBC Differential . Differential Comment Auto diff final PT INR APTT Fibrinogen POC Sodium Sodium POC Potassium Potassium POC Chloride Chloride Carbon Dioxide Anion Gap POC BUN BUN Creatinine POC Creatinine Estimated GFR POC Glucose Random Glucose Hemoglobin A1c Calcium Total Bilirubin AST ALT Alkaline Phosphatase Total Creatine Kinase CK-MB (CK-2) CK-MB (CK-2) % Troponin I Total Protein Albumin Triglycerides Cholesterol LDL Cholesterol, Calc HDL Cholesterol Cholesterol/HDL Ratio Urine Color Urine Clarity Urine pH Ur Specific [place] Urine Protein Urine Glucose (UA) Urine Ketones Urine Occult Blood Urine Nitrate Urine Bilirubin Urine Urobilinogen Ur Leukocyte Esterase Urine RBC Urine WBC Ur Squamous Epith Cells Urine Mucus Micro UA Comment Ur Microscopic Review Urine Culture Comments Urine Opiates Screen Ur Barbiturates Screen Ur Amphetamines Screen U Benzodiazepines Scrn Urine Cocaine Screen U Cannabinoids Screen Blood Type O Positive Blood Type Recheck Required Antibody Screen Negative - Impressions ITS Impressions Head MRI 09/06/18 00:00 CONCLUSION: 1. 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 2. 4 mm acute infarct medially of the right temporal lobe. 3. No bleed, mass effect or midline shift demonstrated. 4. Very mild chronic white matter changes. Chest X-Ray 09/06/18 10:38 CONCLUSION: Limited mid inspiratory study with no definite acute cardiopulmonary disease. Head CT 09/06/18 10:38 CONCLUSION: 1. No acute hemorrhage, mass or evidence of acute infarction. 2. Atrophy and chronic small vessel ischemic change. Report was called by [your Schiering to Dr. Ghotra in the emergency room at 1054 hours. ] Head CTA 09/06/18 10:38 CONCLUSION: 1. Unremarkable head CTA. No evidence for large vessel occlusion. Report was called by Dr. Neely to Dr. Whitehead at 11:22 am.] Neck CTA 09/06/18 10:38 CONCLUSION: 1. Essentially unremarkable study except for minimal atherosclerotic plaquing at the origin of both internal carotid arteries. CT CAD 09/06/18 10:39 CONCLUSION: Physiological brain perfusion parameters with RAPID analysis as above. The decision for consideration of therapy is multi factorial and multi disciplinary relying on subjective and objective clinical data. This data is not construed or intended to be the sole determinant of treatment eligibility. Discharge Plan - Discharge Disposition Patient Disposition: 01 Discharge Home - Discharge Condition Condition: Stable - Discharge Order Discharge Orders: Discharge Order (Routine); Ordered 09/07/18 Ordered By: Prince Schulte - Discharge Details Anticipated Discharge Date: 09/07/18 - Physicians Team Primary Care Provider: UNKNOWN, Attending Provider: Prince Schulte Other Providers: Tylor Whitehead MD
[2018-09-07 10:52] VITALS: PULSE 94
--- NOTE | 2018-09-07 20:08 | ECG ---
Date Performed: 09/06/2018 Time Performed: 11:15:12 PTAGE: 78 years EKG: SINUS BRADYCARDIA BORDERLINE LEFT AXIS DEVIATION MODERATE INTRAVENTRICULAR CONDUCTION DELAY ST DEVIATION AND MODERATE T-WAVE ABNORMALITY, CONSIDER ANTEROLATERAL ISCHEMIA ABNORMAL ECG PREVIOUS TRACING : 02/13/2008 13.30 Compared to previous tracing, ANTEROLATERAL T WAVE ABNORMAL ITY IS NEW DOCTOR: Ciro Nesbitt Interpretating Date/Time 09/07/2018 20:08:13
== END 2018-09-07 14:22 | disposition home or self-care (01) ==
LOC: NEPC 10:33 → NEDA 11:47 → N06 20:10
PROVIDERS: ADMIT Hospitalist; ATTEND Hospitalist